=== PATIENT | female | born 1965 | race Asian ===

== ENCOUNTER 2016-10-06 12:28 | Inpatient (IN) | payer OTHER ==
[~2016-10-06] VITALS: Ht 147.3 cm; Wt 56.2 kg
[2016-10-06] MEDS ORDERED: ALPR0.5T PO (13:14)
[2016-10-06] MEDS ORDERED: IBUP200C11 PO (13:15)
[2016-10-06] MEDS ORDERED: FER325 PO (13:15)
[2016-10-06] MEDS ORDERED: AMLO5TAB4 PO (13:16)
[2016-10-06 13:29] LABS: ADD SCAN DIFF NO
[2016-10-06 13:32] LABS: ABNORMAL IP MESSAGE 1; HEMATOCRIT 16.5 % (37.0-47.0); MEAN CORPUSCULAR HEMOGLOBIN 38.3 pg (29.0-33.0); MEAN CORPUSCULAR HGB CONC 32.7 g/dl (32.0-37.0); RED BLOOD COUNT 1.41 10^6/ul (4.20-5.40); RED CELL DISTRIBUTION WIDTH 15.8 % (11.5-14.5); WHITE BLOOD COUNT 2.5 10^3/ul (4.8-10.8)
--- NOTE | 2016-10-06 13:38 | RADRPT ---
PROCEDURE: Chest x-ray CLINICAL INDICATION: Upper GI bleed TECHNIQUE: Chest single view COMPARISON: None FINDINGS: The heart is normal in size. The pulmonary vessels are normal in caliber. The lungs are clear. Th e costophrenic angles are sharp. The visualized bony thorax is unremarkable. IMPRESSION: No acute cardiopulmonary disease. RPTAT: HH .Delano Plaza MD, Date Time Electronically viewed and signed by .Delano Plaza MD, on 10/06/2016 13:38 .W/
[2016-10-06 13:39] LABS: HEMOGLOBIN 5.4 g/dl (12.0-16.0)
[2016-10-06 13:40] LABS: CHLORIDE 107 mmol/L (97-110); PLATELET COUNT 25 10^3/UL (140-415)
[2016-10-06 13:41] LABS: ALBUMIN 3.9 g/dl (3.3-4.9); POTASSIUM 3.7 mmol/L (3.5-5.1); SODIUM 144 mmol/L (135-144)
[2016-10-06 13:42] LABS: INR 0.8; PROTIME 11.1 Sec (12.2-14.2); PT RATIO 0.9
[2016-10-06 13:43] LABS: PARTIAL THROMBOPLASTIN TIME 27.2 Sec (25.0-35.0)
[2016-10-06 13:44] LABS: ALANINE AMINOTRANSFERASE 35 IU/L (13-69); ALKALINE PHOSPHATASE 141 IU/L (42-121); ANION GAP 16 (8-16); ASPARTATE AMINO TRANSFERASE 18 IU/L (15-46); BLOOD UREA NITROGEN 12 mg/dl (7-20); CALCIUM 8.8 mg/dl (8.4-10.2); CARBON DIOXIDE 25 mmol/L (21-31); CREATININE 0.41 mg/dl (0.44-1.00); GLUCOSE 85 mg/dl (70-220); TOTAL PROTEIN 7.8 g/dl (6.1-8.1)
[2016-10-06 13:57] LABS: TROPONIN-I < 0.012 ng/ml (0.00-0.12)
--- NOTE | 2016-10-06 14:15 | ERA ---
ER Documentation Chief Complaint Date/Time DATE: 10/06/16 TIME: 14:11 Chief Complaint SENT HERE BY PMD FOR BLOOD TRANSFUSION HGB 7.1, CHEST PAIN X 3 WEEKS HPI In the office. Patient states she has had anemia chronically but never had blood transfusions before. Patient states she has had 3 weeks of daily exertional angina. Never has pain at rest. Patient will get chest pain with walking or exerting herself has to rest to get relief. No shortness of breath no melena no heavy vaginal bleeding no bleeding gums no abdominal pain vomiting diarrhea. No dyspnea on exertion or orthopnea. Patient does have a history of thrombocytopenia. Patient has no idea why she has thrombocytopenia or anemia in the past ROS All systems reviewed and are negative except as per history of present illness. Medications Home Meds Reported Medications Amlodipine Besylate* (Norvasc*) 5 Mg Tablet, 5 MG PO DAILY, TAB 10/06/16 Ferrous Sulfate* (Ferrous Sulfate*) 325 Mg Tabec, 325 MG PO BID, TAB 10/06/16 Ibuprofen* (Advil*) 200 Mg Capsule, 400 MG PO DAILY Y for PRN, CAP 10/06/16 Alprazolam* (Xanax*) Unknown Strength Tab, MG PO QHS Y for ANXIETY, TAB 10/06/16 Allergies Allergies: Coded Allergies: No Known Allergy (Unverified , 10/06/16) PMhx/Soc History of Surgery: No Anesthesia Reaction: No Hx Neurological Disorder: No Hx Respiratory Disorders: No Hx Cardiac Disorders: Yes (HTN) Hx Psychiatric Problems: No Hx Miscellaneous Medical Probl: Yes (anemia, Hep B, ) Hx Alcohol Use: No Hx Substance Use: No Hx Tobacco Use: No Smoking Status: Never smoker FmHx Family History: No coronary disease Physical Exam Vitals Vital Signs Date Time Temp Pulse Resp B/P Pulse Ox O2 Delivery O2 Flow Rate FiO2 10/06/16 14:01 72 14 114/78 100 Nasal Cannula 2.0 10/06/16 12:36 92.8 78 20 124/81 100 Physical Exam Const: Well-developed, well-nourished Head: Atraumatic, normocephalic Eyes: pale Conjunctiva, PERRLA, EOMI, normal sclera, no nystagmus ENT: Normal External Ears, Nose and Mouth, moist mucus membranes. Neck: Full range of motion. No meningismus, no lymphadenopathy. Resp: Clear to auscultation bilaterally, no wheezing, rhonchi, rales Cardio: Regular rate and rhythm, no murmurs, S1 S2 present Abd: Soft, non tender x 4, non distended. Normal bowel sounds, no guarding or rebound, no pulsitile abdominal masses or bruits Skin: No petechiae or rashes, no ecchymosis , no maculopapular rash Back: No midline or flank tenderness Ext: No cyanosis, or edema, FROM x 4, normal inspection, neurovascularly intact x 4 Neur: Awake and alert, STR 5/5 x 4, sensation intact x 4, no focal findings, cerebellum intact Psych: Normal Mood and Affect Result Diagram: 10/06/16 1320 10/06/16 1320 Results 24 hrs Laboratory Tests Test 10/06/16 13:20 Activated Partial Thromboplast Time 27.2Sec Alanine Aminotransferase (ALT/SGPT) 35IU/L Albumin 3.9g/dl Albumin/Globulin Ratio 1.00 Alkaline Phosphatase 141IU/L Anion Gap 16 Aspartate Amino Transf (AST/SGOT) 18IU/L Blood Urea Nitrogen 12mg/dl Calcium Level 8.8mg/dl Carbon Dioxide Level 25mmol/L Chloride Level 107mmol/L Creatinine 0.41mg/dl Direct Bilirubin 0.00mg/dl Globulin 3.90g/dl Glucose Level 85mg/dl Hematocrit 16.5% Hemoglobin 5.4g/dl INR International Normalized Ratio 0.80 Indirect Bilirubin 0.0mg/dl Mean Corpuscular Hemoglobin 38.3pg Mean Corpuscular Hemoglobin Concent 32.7g/dl Mean Corpuscular Volume 117.0fl Mean Platelet Volume 10.0fl Platelet Count 2510^3/UL Potassium Level 3.7mmol/L Prothrombin Time 11.1Sec Prothrombin Time Ratio 0.9 Red Blood Count 1.4110^6/ul Red Cell Distribution Width 15.8% Sodium Level 144mmol/L Total Bilirubin 0.0mg/dl Total Protein 7.8g/dl Troponin I < 0.012ng/ml White Blood Count 2.510^3/ul Procedures/MDM EKG: Rate/Rhythm: Normal sinus rhythm heart rate 76 QRS, ST, QT: NORMAL OR, QRS, QT] Impression: NORMAL EKG PROCEDURE: Chest x-ray CLINICAL INDICATION: Upper GI bleed TECHNIQUE: Chest single view COMPARISON: None FINDINGS: The heart is normal in size. The pulmonary vessels are normal in caliber. The lungs are clear. The costophrenic angles are sharp. The visualized bony thorax is unremarkable. IMPRESSION: No acute cardiopulmonary disease. RPTAT: HH .Delano Plaza MD, Date Time Electronically viewed and signed by .Delano Plaza MD, on 10/06/2016 13:38 .W/ CC: ZAIDA CARPENTER DO Patient will get 2 units of packed red blood cells transfused 2 units of platelets. Patient has severe thrombocytopenia and anemia and pancytopenia She will need to get admitted to the hospital and undergo a bone marrow biopsy Her chest pain is likely due to her anemia Critical Care Time: 30 minutes Treatments/Evaluations: Close monitoring and treatment of unstable vital signs, cardiorespiratory, and neurologic status, while maintaining tight balance of fluid, respiratory, and cardiac interventions. This time includes discussing the case with the patient and the patient's family. This time does not include all procedures stated elsewhere in this record. This time also includes reviewing old records, labs and radiological studies. This time includes examining and re-examining the patient. Additionally, this time also includes arranging care with admitting and consulting physicians. Departure Diagnosis: Primary Impression: Pancytopenia Additional Impressions: Severe anemia Chest pain Qualified Code: R07.9 - Chest pain, unspecified type Condition: Stable ZAIDA CARPENTER DO Oct 06, 2016 14:15
[2016-10-06 14:25] LABS: EOSINOPHILS # 0.1 10^3/ul (0.0-0.5); LYMPHOCYTES # 1.8 10^3/ul (0.8-2.9); MONOCYTE # 0.1 10^3/ul (0.3-0.9); NEUTROPHIL # 0.6 10^3/ul (1.6-7.5)
[2016-10-06 14:31] LABS: PLATELET ESTIMATE PLT APPEAR DECREASED
[2016-10-06] MEDS ORDERED: SOD CHLORIDE 0.9% 1,000 ML IV SCH (14:47)
[2016-10-06] MEDS ORDERED: ACETAMINOPHEN 325 MG TAB PO PRN (15:00)
[2016-10-06] MEDS ORDERED: ONDANSETRON 4 MG INJ IV PRN (15:00)
[2016-10-06 15:51] VITALS: TEMP 93.5
[2016-10-06 17:13] VITALS: Ht 147.3 cm; Wt 56.2 kg
[2016-10-06 20:00] VITALS: BP 140/82; RESP 16
--- NOTE | 2016-10-06 21:11 | QN ---
Documentation Comment [id number] CINYD LYLE MD Oct 06, 2016 21:11
--- NOTE | 2016-10-06 22:15 | HP ---
DATE OF ADMISSION: 10/06/2016 HISTORY OF PRESENT ILLNESS: The patient is a 51-year-old female with history of anemia. The patient has history of pancytopenia, has been seeing a shape carver as an outpatient _. The patient now was seen by her primary doctor , noted to have symptomatic anemia, was transferred here for further management. Blood pressure 140/82. WBCs 2.5, hemoglobin 5.4, platelet count of 25. The patient has a BMP within normal limits. Chest x-ray was unremarkable. The patient denies any hematemesis, melena at this point. No history of vaginal bleed or GI bleed. PAST MEDICAL HISTORY: Has history of pancytopenia. The patient has history of hypertension, anxiety. ALLERGY HISTORY: NEGATIVE. FAMILY HISTORY: Positive for anemia, thrombocytopenia. SOCIAL HISTORY: Negative. MEDICATIONS: 1. Xanax. 2. Amlodipine. 3. Iron sulfate. 4. Ibuprofen. REVIEW OF SYSTEMS HEENT: Unremarkable. RESPIRATORY: Unremarkable. CARDIOVASCULAR: Unremarkable. ABDOMEN: Unremarkable. EXTREMITIES: As mentioned above, unremarkable. CENTRAL NERVOUS SYSTEM: Unremarkable. PHYSICAL EXAMINATION: GENERAL: The patient is awake, alert. VITAL SIGNS: Stable. HEAD: Atraumatic, normocephalic. EYES: Pupils equal, reactive. Pale conjunctivae. No icterus. NECK: Supple. No JVD. LUNGS: Clear. CARDIOVASCULAR: S1, S2 are normal. ABDOMEN: Soft, nontender. Bowel sounds present. No palpable mass or hepatosplenomegaly. No guarding, rebound tenderness. EXTREMITIES: No cyanosis, clubbing, edema. CENTRAL NERVOUS SYSTEM: The patient is awake, alert. No focal deficit. LABORATORY DATA: As mentioned above. IMPRESSION: 1. The patient has pancytopenia. 2. Symptomatic anemia. 3. History of chronic hyponatremia per patient. PLAN: At this point is to continue blood transfusion, obtain hematology consultation. Orders were done. Dr. Liu has been notified to see this patient in consultation. Dictated By: CINDY LYLE MD BS/NTS Conf#: [id number] DID#: [id number] MTDD
[2016-10-06] MEDS: ZOLPIDEM 5 MG TAB PO PRN (23:03)
[2016-10-07] MEDS ORDERED: ZOLPIDEM 5 MG TAB PO ONE ×2 (01:16→22:30)
[2016-10-07] MEDS: ACETAMINOPHEN/CODEINE #3 TAB PO PRN ×2 (01:29→15:42)
[2016-10-07] MEDS: SOD CHLORIDE 0.9% 1,000 ML IV SCH ×2 (01:33→19:00)
[2016-10-07 02:44] LABS: ADD SCAN DIFF NO
[2016-10-07 02:53] LABS: ABNORMAL IP MESSAGE 1; BASOPHILS % 0.2 % (0.0-2.0); EOSINOPHILS % 0.2 % (0.0-7.0); HEMATOCRIT 25.9 % (37.0-47.0); HEMOGLOBIN 8.5 g/dl (12.0-16.0); LYMPHOCYTES # 1.4 10^3/ul (0.8-2.9); LYMPHOCYTES % 25.9 % (15.0-51.0); MEAN CORPUSCULAR HEMOGLOBIN 33.2 pg (29.0-33.0); MEAN CORPUSCULAR HGB CONC 32.8 g/dl (32.0-37.0); MEAN CORPUSCULAR VOLUME 101.2 fl (82.0-101.0); MEAN PLATELET VOLUME 9.5 fl (7.4-10.4); MONOCYTE # 0.4 10^3/ul (0.3-0.9); MONOCYTES % 7.8 % (0.0-11.0); NEUTROPHIL # 3.5 10^3/ul (1.6-7.5); NEUTROPHILS % 65.5 % (39.0-77.0); RED BLOOD COUNT 2.56 10^6/ul (4.20-5.40); RED CELL DISTRIBUTION WIDTH 20.7 % (11.5-14.5); WHITE BLOOD COUNT 5.3 10^3/ul (4.8-10.8)
[2016-10-07 02:59] LABS: PLATELET COUNT 87 10^3/UL (140-415)
[2016-10-07 03:05] LABS: ALBUMIN 4.1 g/dl (3.3-4.9); POTASSIUM 3.8 mmol/L (3.5-5.1)
[2016-10-07 03:07] LABS: CREATININE 0.56 mg/dl (0.44-1.00)
[2016-10-07 03:08] LABS: ALBUMIN/GLOBULIN RATIO 1.17; BILIRUBIN,INDIRECT 0.2 mg/dl (0-1.1); BILIRUBIN,TOTAL 0.2 mg/dl (0.2-1.3); CALCIUM 9.9 mg/dl (8.4-10.2); TOTAL PROTEIN 7.6 g/dl (6.1-8.1)
[2016-10-07 05:01] LABS: ADD SCAN DIFF NO
[2016-10-07 05:20] LABS: ABNORMAL IP MESSAGE 1; BASOPHILS % 0.2 % (0.0-2.0); EOSINOPHILS % 0.2 % (0.0-7.0); HEMATOCRIT 25.7 % (37.0-47.0); HEMOGLOBIN 8.6 g/dl (12.0-16.0); LYMPHOCYTES # 1.5 10^3/ul (0.8-2.9); LYMPHOCYTES % 27.3 % (15.0-51.0); MEAN CORPUSCULAR HGB CONC 33.5 g/dl (32.0-37.0); MEAN CORPUSCULAR VOLUME 101.6 fl (82.0-101.0); MONOCYTE # 0.4 10^3/ul (0.3-0.9); MONOCYTES % 7.4 % (0.0-11.0); NEUTROPHIL # 3.5 10^3/ul (1.6-7.5); NEUTROPHILS % 64.2 % (39.0-77.0); NUCLEATED RED BLOOD CELLS% 0.4 /100WBC (0.0-0.0); RED BLOOD COUNT 2.53 10^6/ul (4.20-5.40); RED CELL DISTRIBUTION WIDTH 20.5 % (11.5-14.5); WHITE BLOOD COUNT 5.4 10^3/ul (4.8-10.8)
[2016-10-07] MEDS: PANTOPRAZOLE 40 MG INJ IV SCH (05:21)
[2016-10-07 05:32] LABS: ALBUMIN 4.3 g/dl (3.3-4.9); POTASSIUM 3.9 mmol/L (3.5-5.1)
[2016-10-07 05:34] LABS: CREATININE 0.56 mg/dl (0.44-1.00)
[2016-10-07 05:35] LABS: ALBUMIN/GLOBULIN RATIO 1.1; BILIRUBIN,INDIRECT 0.1 mg/dl (0-1.1); BILIRUBIN,TOTAL 0.1 mg/dl (0.2-1.3); TOTAL PROTEIN 8.2 g/dl (6.1-8.1)
[2016-10-07 05:36] LABS: CALCIUM 9.8 mg/dl (8.4-10.2)
[2016-10-07 07:43] VITALS: BP 128/82; RESP 20
[2016-10-07 13:52] LABS: HAAIG REFLEX REFLEX FILED
[2016-10-07 13:58] LABS: RETICULOCYTE COUNT % 3.1 % (0.5-1.5)
[2016-10-07 14:13] LABS: PLATELET COUNT 94 10^3/UL (140-415)
[2016-10-07 14:19] LABS: INR 0.93; PROTIME 12.5 Sec (12.2-14.2)
[2016-10-07 14:20] LABS: PARTIAL THROMBOPLASTIN TIME 26.9 Sec (25.0-35.0); THROMBIN TIME 15.5 SEC (13.8-19.1)
[2016-10-07 14:21] LABS: LACTATE DEHYDROGENASE 554 IU/L (313-618)
[2016-10-07 14:23] LABS: D-DIMER 901.34 ng/ml (<460)
[2016-10-07 14:26] LABS: IRON 176 ug/dl (35-150)
[2016-10-07 14:35] LABS: TOTAL IRON BINDING CAPACITY 469 ug/dl (241-421)
[2016-10-07 14:48] LABS: FIBRIN SPLIT PRODUCT <10 ug/ml (<10)
[2016-10-07 15:08] LABS: HEPATITIS B CORE ANTIBODY REACTIVE (NEGATIVE)
--- NOTE | 2016-10-07 15:14 | CONS ---
Date/Time of Note Date/Time of Note DATE: 10/07/16 TIME: 15:11 Assessment/Plan Assessment/Plan Chief Complaint/Hosp Course The patient is a 51-year-old female with history of anemia and pancytopenia - Will obtain work-up with retic count, iron panel, ferritin, B12/folate, LDH, haptoglobin, HIV, Hep panel, DIC panel. - Will obtain abdominal US to eval for cirrhosis or splenomegaly - Peripheral smear review by path requested - Will pursue bone marrow biopsy tomorrow by IR. DUMONT after MN - If blood counts stable tomorrow and after US and BMBx, patient may be discharged home with outpatient follow-up. She requests to follow up with me after discharge and has been given my card to call to make an appointment. Problems: Consultation Date/Type/Reason Admit Date/Time Oct 06, 2016 at 14:48 Date of Consultation: Oct 07, 2016 Type of Consultation: Hematology/Oncology Hx of Present Illness The patient is a 51-year-old female with history of anemia. The patient has history of pancytopenia, and saw pretzel cooker Dr. Bishop last year for low blood counts but states that she did not have a diagnosis. The patient now was seen by her primary doctor, noted to have symptomatic anemia, was transferred here for further management. WBCs 2.5, hemoglobin 5.4, platelet count of 25, s/p platelet and blood transfusions, now WBC 5.2, Hgb 8.5, Plt 87. The patient denies any hematemesis, melena at this point. No history of vaginal bleed or GI bleed. She has been feeling quite fatigued. Past Medical History Hypertension, anxiety Family History Significant Family History: no pertinent family hx Social History Alcohol Use: none Smoking Status: Never smoker Drug Use: none Exam/Review of Systems Vital Signs Vitals Vital Signs Date Time Temp Pulse Resp B/P Pulse Ox O2 Delivery O2 Flow Rate FiO2 10/07/16 07:43 97.3 62 20 128/82 97 10/06/16 15:51 Nasal Cannula 2.0 Intake and Output 10/06/16 10/06/16 10/07/16 15:00 23:00 07:00 Intake Total 600 ml 505 ml Balance 600 ml 505 ml Exam Constitutional: alert, oriented Psych: no complaints Neck: supple Respiratory: clear to auscultation Cardiovascular: regular rate and rhythm Gastrointestinal: non-tender, soft Musculoskeletal: nl extremities to inspection Neurological: [employer]ING [employer]INATOR II-XII intact Results Result Diagram: 10/07/16 1316 10/07/16 0415 Results 24 hrs Laboratory Tests Test 10/07/16 02:30 10/07/16 04:15 10/07/16 10:30 10/07/16 13:16 Alanine Aminotransferase (ALT/SGPT) 28 31 Albumin 4.1 4.3 Albumin/Globulin Ratio 1.17 1.10 Alkaline Phosphatase 114 123 H Anion Gap 19 H 18 H Aspartate Amino Transf (AST/SGOT) 22 23 Basophils # 0.0 0.0 Basophils % 0.2 0.2 Blood Urea Nitrogen 13 14 Calcium Level 9.9 9.8 Carbon Dioxide Level 25 27 Chloride Level 105 104 Creatinine 0.56 0.56 Direct Bilirubin 0.00 0.00 Eosinophils # 0.0 0.0 Eosinophils % 0.2 0.2 Globulin 3.50 H 3.90 H Glucose Level 109 87 Hematocrit 25.9 #L 25.7 L Hemoglobin 8.5 #L 8.6 L Indirect Bilirubin 0.2 0.1 Lymphocytes # 1.4 1.5 Lymphocytes % 25.9 27.3 Mean Corpuscular Hemoglobin 33.2 H 34.0 H Mean Corpuscular Hemoglobin Concent 32.8 33.5 Mean Corpuscular Volume 101.2 H 101.6 H Mean Platelet Volume 9.5 10.0 Monocytes # 0.4 0.4 Monocytes % 7.8 7.4 Neutrophils # 3.5 3.5 Neutrophils % 65.5 64.2 Nucleated Red Blood Cells # 0.0 0.0 Nucleated Red Blood Cells % 0.0 0.4 H Platelet Count 87 #L 90 L 94 L Potassium Level 3.8 3.9 Red Blood Count 2.56 #L 2.53 L Red Cell Distribution Width 20.7 #H 20.5 H Sodium Level 145 H 145 H Total Bilirubin 0.2 0.1 L Total Protein 7.6 8.2 H White Blood Count 5.3 # 5.4 Stool Occult Blood NEGATIVE Absolute Reticulocyte Count 0.081 Activated Partial Thromboplast Time 26.9 D-Dimer 901.34 H D-Dimer Comment Ferritin Pending Fibrinogen 449.0 Folate Pending HIV (1&2) Antibody Pending Hepatitis B Core Total Antibody Pending Hepatitis B Surface Antigen Pending Hepatitis C Antibody Pending INR International Normalized Ratio 0.93 Iron Level 176 H Lactate Dehydrogenase 554 Percent Iron Saturation 38 Percent Reticulocyte Count 3.1 H Plasma Fibrin Degradation Products <10 Prothrombin Time 12.5 Prothrombin Time Ratio 1.0 Thrombin Time 15.5 Total Iron Binding Capacity 469 H Vitamin B12 Level Pending Medications Medications Current Medications Pantoprazole 40 mg 40 mg DAILY@06 IV Last administered on 10/07/16 05:21; Admin Dose 40 MG; Start 10/07/16 at 06:00 Sodium Chloride (NS) 1,000 ml @ 30 mls/hr Q24H IV Last administered on 01:33; Admin Dose 30 MLS/HR; Start 10/06/16 at 19:00 Zolpidem Tartrate (Ambien) 5 mg HS PRN PO INSOMNIA Last administered on 23:03; Admin Dose 5 MG; Start 10/06/16 at 22:30 Acetaminophen/ Codeine Phosphate (Tylenol No.3) 1 tab Q6H PRN PO PAIN Last administered on 10/07/16 01:29; Admin Dose 1 TAB; Start 10/07/16 at 01:30 MARINA CARRASCO MD Oct 07, 2016 15:14
[2016-10-07 15:31] LABS: FOLATE 8.7 ng/ml (2.8-20.0)
--- NOTE | 2016-10-07 19:33 | RADRPT ---
PROCEDURE: Complete abdominal and retroperitoneum ultrasound. CLINICAL INDICATION: Abdominal pain, splenomegaly, cirrhosis TECHNIQUE: [place] scale and color doppler ultrasound images of the abdomen and retroperitoneum and u rinary bladder. COMPARISON: None FINDINGS: Pancreas: Visualized portions appear of normal echogenicity, no focal lesions. Liver: Morphology: Normal in size and contour. Measures 15.3 cm Echogenicity: Minimal questionable coarsening of the hepatic echotexture. Focal lesions: None. Main portal vein: Patent with hepatopetal flow. Biliary System: Gallbladder appears contracted. No gallstones seen. No intrahepatic biliary dilatation. Common bile duct diameter: 3.3 mm Kidneys: Right length: 11.8 cm. Right renal cortical thickness is preserved. Left length: 12.1 cm. Left renal cortical thickness is preserved. Normal echogenicity. Minimal bilateral hydronephrosis. A few nonshadowing echogenic foci are present within each kidney measuring up to 5 mm. No focal renal lesions. Spleen: Normal in size, no focal lesions. Measures 9.3 cm No free fluid identified. Normal caliber of the partially visualized aorta. Urinary bladder: No focal lesions. Bilateral ureteral jets are observed. IMPRESSION: Minimal questionable coarsening of the hepatic echotexture without contour nodularity. Appearance i s not definitely suggestive of cirrhosis. No focal hepatic lesions. Gallbladder appears contracted without gallstones. Normal size spleen. Small echogenic foci seen within both kidneys without definite shadowing; these may represent small nonshadowing calculi. Minimal bilateral hydronephrosis is observed although both ureteral jets are p resent. CT scan of the abdomen and pelvis can be obtained for further evaluation. RPTAT: AADD .Abdulaziz Kellogg MD, Date Time Electronically viewed and signed by .Abdulaziz Kellogg MD, on 10/07/2016 19:32 .B/
--- NOTE | 2016-10-07 19:48 | PN ---
Date/Time of Note Date/Time of Note DATE: 10/07/16 TIME: 19:47 Assessment/Plan VTE Prophylaxis VTE Prophylaxis Intervention: other Lines/Catheters IV [facility] Peripheral IV Assessment/Plan Chief Complaint/Hosp Course IMPRESSION: 1. The patient has pancytopenia. 2. Symptomatic anemia. 3. History of chronic hyponatremia per patient. plan per hematology Problems: Subjective 24 Hr Interval Summary Cardiovascular: no complaints Gastrointestinal: no complaints Exam/Review of Systems Vital Signs Vitals Vital Signs Date Time Temp Pulse Resp B/P Pulse Ox O2 Delivery O2 Flow Rate FiO2 10/07/16 07:43 97.3 62 20 128/82 97 10/06/16 15:51 Nasal Cannula 2.0 Intake and Output 10/06/16 10/06/16 10/07/16 15:00 23:00 07:00 Intake Total 600 ml 505 ml Balance 600 ml 505 ml Exam Respiratory: clear to auscultation Cardiovascular: regular rate and rhythm Gastrointestinal: soft Musculoskeletal: nl extremities to inspection Results Result Diagram: 10/07/16 1316 10/07/16 0415 Results 24 hrs Laboratory Tests Test 10/07/16 02:30 10/07/16 04:15 10/07/16 10:30 10/07/16 13:16 Alanine Aminotransferase (ALT/SGPT) 28 31 Albumin 4.1 4.3 Albumin/Globulin Ratio 1.17 1.10 Alkaline Phosphatase 114 123 H Anion Gap 19 H 18 H Aspartate Amino Transf (AST/SGOT) 22 23 Basophils # 0.0 0.0 Basophils % 0.2 0.2 Blood Urea Nitrogen 13 14 Calcium Level 9.9 9.8 Carbon Dioxide Level 25 27 Chloride Level 105 104 Creatinine 0.56 0.56 Direct Bilirubin 0.00 0.00 Eosinophils # 0.0 0.0 Eosinophils % 0.2 0.2 Globulin 3.50 H 3.90 H Glucose Level 109 87 Hematocrit 25.9 #L 25.7 L Hemoglobin 8.5 #L 8.6 L Indirect Bilirubin 0.2 0.1 Lymphocytes # 1.4 1.5 Lymphocytes % 25.9 27.3 Mean Corpuscular Hemoglobin 33.2 H 34.0 H Mean Corpuscular Hemoglobin Concent 32.8 33.5 Mean Corpuscular Volume 101.2 H 101.6 H Mean Platelet Volume 9.5 10.0 Monocytes # 0.4 0.4 Monocytes % 7.8 7.4 Neutrophils # 3.5 3.5 Neutrophils % 65.5 64.2 Nucleated Red Blood Cells # 0.0 0.0 Nucleated Red Blood Cells % 0.0 0.4 H Platelet Count 87 #L 90 L 94 L Potassium Level 3.8 3.9 Red Blood Count 2.56 #L 2.53 L Red Cell Distribution Width 20.7 #H 20.5 H Sodium Level 145 H 145 H Total Bilirubin 0.2 0.1 L Total Protein 7.6 8.2 H White Blood Count 5.3 # 5.4 Stool Occult Blood NEGATIVE Absolute Reticulocyte Count 0.081 Activated Partial Thromboplast Time 26.9 D-Dimer 901.34 H D-Dimer Comment Ferritin 108.0 Fibrinogen 449.0 Folate 8.7 HIV (1&2) Antibody NEGATIVE Hepatitis B Core Total Antibody REACTIVE H Hepatitis B Surface Antigen NEGATIVE Hepatitis C Antibody NEGATIVE INR International Normalized Ratio 0.93 Iron Level 176 H Lactate Dehydrogenase 554 Percent Iron Saturation 38 Percent Reticulocyte Count 3.1 H Plasma Fibrin Degradation Products <10 Prothrombin Time 12.5 Prothrombin Time Ratio 1.0 Thrombin Time 15.5 Total Iron Binding Capacity 469 H Vitamin B12 Level 902 Medications Medications Current Medications Pantoprazole 40 mg 40 mg DAILY@06 IV Last administered on 10/07/16 05:21; Admin Dose 40 MG; Start 10/07/16 at 06:00 Sodium Chloride (NS) 1,000 ml @ 30 mls/hr Q24H IV Last administered on 01:33; Admin Dose 30 MLS/HR; Start 10/06/16 at 19:00 Zolpidem Tartrate (Ambien) 5 mg HS PRN PO INSOMNIA Last administered on 23:03; Admin Dose 5 MG; Start 10/06/16 at 22:30 Acetaminophen/ Codeine Phosphate (Tylenol No.3) 1 tab Q6H PRN PO PAIN Last administered on 10/07/16 15:42; Admin Dose 1 TAB; Start 10/07/16 at 01:30 CINDY LYLE MD Oct 07, 2016 19:48
[2016-10-07 20:01] VITALS: BP 139/97; RESP 19
[2016-10-07] MEDS: ZOLPIDEM 5 MG TAB PO PRN (20:56)
[2016-10-08] MEDS: ACETAMINOPHEN/CODEINE #3 TAB PO PRN ×2 (01:10→12:11)
[2016-10-08] MEDS: PANTOPRAZOLE 40 MG INJ IV SCH (05:42)
[2016-10-08 05:48] LABS: ADD SCAN DIFF NO
[2016-10-08 05:53] LABS: ABNORMAL IP MESSAGE 1; BASOPHILS % 0.3 % (0.0-2.0); EOSINOPHILS % 0.6 % (0.0-7.0); HEMOGLOBIN 8.3 g/dl (12.0-16.0); LYMPHOCYTES # 1.7 10^3/ul (0.8-2.9); LYMPHOCYTES % 47.5 % (15.0-51.0); MEAN CORPUSCULAR HEMOGLOBIN 34.2 pg (29.0-33.0); MEAN CORPUSCULAR HGB CONC 33.2 g/dl (32.0-37.0); MEAN CORPUSCULAR VOLUME 102.9 fl (82.0-101.0); MEAN PLATELET VOLUME 9.8 fl (7.4-10.4); MONOCYTE # 0.3 10^3/ul (0.3-0.9); MONOCYTES % 9.6 % (0.0-11.0); NEUTROPHIL # 1.5 10^3/ul (1.6-7.5); NEUTROPHILS % 40.9 % (39.0-77.0); NUCLEATED RED BLOOD CELLS% 0.6 /100WBC (0.0-0.0); PLATELET COUNT 74 10^3/UL (140-415); POTASSIUM 3.9 mmol/L (3.5-5.1); RED BLOOD COUNT 2.43 10^6/ul (4.20-5.40); WHITE BLOOD COUNT 3.5 10^3/ul (4.8-10.8)
[2016-10-08 05:55] LABS: CREATININE 0.53 mg/dl (0.44-1.00)
[2016-10-08 05:56] LABS: CALCIUM 9.6 mg/dl (8.4-10.2)
[2016-10-08 08:07] VITALS: BP 140/86; RESP 20
[2016-10-08] MEDS ORDERED: MIDAZOLAM 1 MG/ML 2 ML INJ ONE (08:35)
[2016-10-08] MEDS ORDERED: FENTAnyl 50 MCG/ML VIAL ONE (08:35)
[2016-10-08] MEDS ORDERED: LIDOCAINE 1% (MDV) 20 ML INJ ONE (08:35)
[2016-10-08] MEDS ORDERED: DIPHENHYDRAMINE 50 MG INJ ONE (08:36)
[2016-10-08 09:25] VITALS: BP 153/93; PULSE 77; RESP 20
[2016-10-08 10:05] VITALS: BP 137/84; PULSE 74; RESP 21
[2016-10-08 10:10] VITALS: BP 143/96; PULSE 72; RESP 20
--- NOTE | 2016-10-08 10:28 | RADRPT ---
PROCEDURE: CT guided bone marrow aspiration and left iliac bone biopsy. CLINICAL INDICATION: History of pancytopenia. TECHNIQUE: Informed consent was obtained. The procedure, risks, benefits, complications and alternatives were e xplained to the patient. Risks including bleeding and infection were explained. The patient understo od and was willing to proceed. A procedural pause was performed. The patient's name, date of , and procedure to be performed were verified. One or more of the following dose reduction techni ques were used: Automated exposure control, adjustment of the mA and/or kV according to patient size , use of iterative reconstruction technique. Using local anesthetic, sterile technique and CT guidance, an 11-gauge On Control bone biopsy needle was advanced into the left iliac bone via a posterior approach. Bone marrow aspiration was perform ed yielding approximately 10 ml. The bone biopsy needle was then advanced an additional 4 cm using the power drill device and tissue was obtained. Adequate tissue was obtained according to the patho logist present during the procedure. The needle was removed. A postprocedural scan was performed. A dressing was applied. The patient tolerated procedure well. COMPARISON: None. FINDINGS: Initial images demonstrate the tip of the needle at the posterior margin of the left iliac bone. Quintero bsequent images demonstrate the needle within the bone. Post biopsy images demonstrate no immediate complication. IMPRESSION: 1. Successful CT guided bone marrow aspiration and biopsy. RPTAT: QQ .Tom Jimenez MD, Date Time Electronically viewed and signed by .Tom Jimenez MD, on 10/08/2016 10:28 .R/
--- NOTE | 2016-10-08 12:38 | PDOCDIS ---
Discharge Instructions CONDITION Patient Condition: Good HOME CARE INSTRUCTIONS: Special Diet: NPO ACTIVITY: Activity Restrictions: Slowly Increase Activity FOLLOW UP/APPOINTMENTS Appointments f/u own pcp 1 wk f/u dr agarwal 1 wk CINDY LYLE MD Oct 08, 2016 12:38
[2016-10-08] MEDS ORDERED: TRAM50TA2 PO (12:39)
[2016-10-08] MEDS ORDERED: ZOLPIDEM 5 MG TAB PO PRN (21:00)
[2016-10-10 08:39] LABS: PLATELET COUNT 90 10^3/UL (140-415)
== END 2016-10-08 15:37 | disposition home or self-care (01) | DRG 810 ==
LOC: E/R 12:28 → PP2 14:48
PROVIDERS: ADMIT Internal Medicine Nephrology; ATTEND Internal Medicine Nephrology
PROC: 30233R1 Transfusion of Nonautologous Platelets into Peripheral Vein, Percutaneous Approach (ICD-10-PCS; principal; 2016-10-06)
PROC: 30233N1 Transfusion of Nonautologous Red Blood Cells into Peripheral Vein, Percutaneous Approach (ICD-10-PCS; 2016-10-06)
DX: D61.818 Other pancytopenia (principal); I10 Essential (primary) hypertension; D64.9 Anemia, unspecified
CPT/HCPCS: 36415; 36430; 71010; 76700; 77012; 80048; 80053; 82270; 82607; 82728; 82746; 83010; 83540; 83615; 84484; 85025; 85045; 85049; 85362; 85378; 85384; 85610; 85670; 85730; 86644; 86703; 86704; 86709; 86803; 86850; 86900; 86901; 86920; 87340; 88305; 88313; 93005; C9113; J1200; J2250; J3010; J7030; P9016; P9035

== ENCOUNTER 2018-01-15 08:30 | Emergency (ER) | END 2018-01-15 16:44 | disposition home or self-care (01) ==

== ENCOUNTER 2018-01-26 09:02 | Emergency (ER) | END 2018-01-26 20:30 | disposition left against medical advice (07) ==

== ENCOUNTER 2018-02-04 09:57 | Emergency (ER) | END 2018-02-04 19:09 | disposition home or self-care (01) ==

== ENCOUNTER 2018-02-11 12:33 | Emergency (ER) | END 2018-02-12 05:40 | disposition home or self-care (01) ==

== ENCOUNTER 2018-02-25 17:27 | Emergency (ER) | END 2018-02-26 02:14 | disposition home or self-care (01) ==

== ENCOUNTER 2018-03-03 16:05 | Emergency (ER) | END 2018-03-04 02:00 | disposition home or self-care (01) ==

== ENCOUNTER 2018-03-04 11:56 | Emergency (ER) | END 2018-03-04 14:44 | disposition home or self-care (01) ==

== ENCOUNTER 2018-03-11 18:50 | Emergency (ER) | END 2018-03-11 20:25 | disposition left against medical advice (07) ==

== ENCOUNTER 2018-05-10 16:50 | Observation (INO) | END 2018-05-12 14:00 | disposition home or self-care (01) ==

== ENCOUNTER 2018-05-25 03:42 | Inpatient (IN) | END 2018-05-25 16:45 | disposition home or self-care (01) | DRG 813 ==

== ENCOUNTER 2018-07-01 17:05 | Inpatient (IN) | END 2018-07-02 17:50 | disposition home or self-care (01) | DRG 812 ==

== ENCOUNTER 2018-09-11 10:25 | Inpatient (IN) | payer OTHER ==
[~2018-09-11] VITALS: Ht 147.3 cm; Wt 54.1 kg
[~2018-09-11 10:25] MED LIST: AMLO-147 PO; DOCU-144 PO; FER325 PO; HYDR-4011 PO; LORA0.5T PO; ZOLP5TAB PO
[2018-09-11] MEDS ORDERED: OLANZAPINE (ODT) 5 MG TAB ODT ONE (11:00)
[2018-09-11] MEDS ORDERED: LORA1TAB PO (11:55)
--- NOTE | 2018-09-11 12:29 | ERD ---
ER Documentation Chief Complaint Chief Complaint hearing voices x few days HPI Patient is a 53 yo female with pancytopenia who presents with auditory and visual hallucinations. Here with her son. No bleeding. History of pancytopen ia with admits in the past for transfusions. No tx yet. ROS All systems reviewed and are negative except as per history of present illness. Medications Home Meds Reported Medications Lorazepam* (Lorazepam*) 1 Mg Tablet, 1 MG PO HS PRN for SLEEP, #30 TAB 09/11/18 Zolpidem Tartrate* (Ambien*) 5 Mg Tablet, 5 MG PO QHS PRN for INSOMNIA, #30 TAB 01/15/18 Discontinued Reported Medications Hydrocodone/Acetaminophen ([place] 5-325 Tablet) 1 Each Tablet, 1 EACH PO NEEDED, TAB 01/15/18 Ferrous Sulfate* (Ferrous Sulfate*) 325 Mg Tabec, 325 MG PO DAILY, TAB 01/15/18 Amlodipine Besylate* (Amlodipine Besylate*) 10 Mg Tablet, 10 MG PO DAILY, #30 TAB 01/15/18 Discontinued Scripts Docusate Sodium* (Colace*) 100 Mg Capsule, 100 MG PO BID for constipation, #60 CAP Prov:INGRID OZUNA MD 05/12/18 Lorazepam* (Lorazepam*) 0.5 Mg Tablet, 0.5 MG PO Q8H PRN for ANXIETY for 2 Days, TAB Prov:INGRID OZUNA MD 05/12/18 Allergies Allergies: Coded Allergies: No Known Allergy (Unverified , 09/11/18) PMhx/Soc Medical and Surgical Hx: pt denies Surgical Hx History of Surgery: No Anesthesia Reaction: No Hx Neurological Disorder: No Hx Respiratory Disorders: No Hx Cardiac Disorders: No Hx Psychiatric Problems: Yes (Anxiety) Hx Miscellaneous Medical Probl: Yes (Anemia, HEP B) Hx Alcohol Use: No Hx Substance Use: No Hx Tobacco Use: No Smoking Status: Former smoker FmHx Family History: No diabetes Physical Exam Vitals Vital Signs Date Temp Pulse Resp B/P (MAP) Pulse Ox O2 O2 Flow FiO2 Time Delivery Rate 09/11/18 98.0 65 18 130/62 99 10:28 (84) Physical Exam Const: No acute distress Head: Atraumatic Eyes: Normal Conjunctiva ENT: Normal External Ears, Nose and Mouth. Neck: Full range of motion. No meningismus. Resp: Clear to auscultation bilaterally Cardio: Regular rate and rhythm, no murmurs Abd: Soft, non tender, non distended. Normal bowel sounds Skin: No petechiae or rashes Back: No midline or flank tenderness Ext: No cyanosis, or edema Neur: Awake and alert Psych: Normal Mood and Affect, no SI/HI Result Diagram: 09/11/18 1110 09/11/18 1110 Results 24 hrs Laboratory Tests Test 09/11/18 11:10 09/11/18 11:26 09/11/18 11:28 White Blood Count 3.3 10^3/ul Red Blood Count 2.42 10^6/ul Hemoglobin 7.4 g/dl Hematocrit 23.1 % Mean Corpuscular Volume 95.5 fl Mean Corpuscular Hemoglobin 30.6 pg Mean Corpuscular 32.0 g/dl Hemoglobin Concent Red Cell Distribution Width 16.1 % Platelet Count 9 10^3/UL Mean Platelet Volume 9.4 fl Immature Granulocytes % 0.300 % Neutrophils % % Segmented Neutrophils % (Manual) 24 % Band Neutrophils % (Manual) 2 % Lymphocytes % % Lymphocytes % (Manual) 62 % Reactive Lymphocytes % (Manual) 2 % Monocytes % % Monocytes % (Manual) 10 % Eosinophils % % Basophils % % Nucleated Red Blood Cells % 1 % Immature Granulocytes # 0.010 10^3/ul Neutrophils # 10^3/ul Neutrophils # (Manual) 0.8 10^3/ul Band Neutrophils # 0.0 10^3/ul Lymphocytes (Manual) 2.0 10^3/ul Lymphocytes # 10^3/ul Reactive Lymphocytes # 0.0 10^3/ul Monocytes # 10^3/ul Monocytes # (Manual) 0.3 10^3/ul Eosinophils # 10^3/ul Basophils # 10^3/ul Nucleated Red Blood Cells # 10^3/ul White Cell Morphology Comment @See below Platelet Estimate SIG DECREASED Polychromasia 3+ Anisocytosis 2+ Microcytosis 2+ Red Cell Morphology Comment @See below Sodium Level 144 mmol/L Potassium Level 3.0 mmol/L Chloride Level 104 mmol/L Carbon Dioxide Level 30 mmol/L Anion Gap 10 Blood Urea Nitrogen 17 mg/dl Creatinine 0.63 mg/dl Est Glomerular Filtrat > 60 mL/min Rate mL/min Glucose Level 97 mg/dl Calcium Level 10.0 mg/dl Total Bilirubin 0.9 mg/dl Direct Bilirubin 0.00 mg/dl Indirect Bilirubin 0.9 mg/dl Aspartate Amino 68 IU/L Transf (AST/SGOT) Alanine 98 IU/L Aminotransferase (ALT/SGPT) Alkaline Phosphatase 155 IU/L Total Protein 8.3 g/dl Albumin 4.4 g/dl Globulin 3.90 g/dl Albumin/Globulin Ratio 1.12 Salicylates Level < 1.0 mg/dl Acetaminophen Level < 10.0 ug/ml Ethyl Alcohol Level < 10.0 mg/dl Urine Color YELLOW Urine Clarity SLIGHTLY CLOUDY Urine pH 5.0 Urine Specific [place] 1.024 Urine Ketones 1+ mg/dL Urine Nitrite NEGATIVE mg/dL Urine Bilirubin NEGATIVE mg/dL Urine Urobilinogen 1+ mg/dL Urine Leukocyte Esterase NEGATIVE Nan/ul Urine Microscopic RBC 5 /HPF Urine Microscopic WBC 4 /HPF Urine Squamous Epithelial Cells FEW /HPF Urine Calcium Oxalate Crystals FEW /HPF Urine Bacteria FEW /HPF Urine Mucus MANY /HPF Urine Hemoglobin 2+ mg/dL Urine Glucose 1+ mg/dL Urine Total Protein NEGATIVE mg/dl Urine Opiates Screen Negative Urine Barbiturates Negative Urine Amphetamines Screen Negative Urine Benzodiazepines Screen Negative Urine Cocaine Screen Negative Urine Cannabinoids Negative POC Beta HCG, Qualitative NEGATIVE Current Medications Medications Dose Sig/Kathrin Start Time Status Last (Trade) Ordered Route PRN Stop Time Admin Dose Reason Admin Olanzapine 5 mg ONCE ONCE 09/11/18 DC 09/11/18 (Zyprexa ODT 11:00 11:15 Zydis) 09/11/18 11:01 Ondansetron 4 mg BRIDGE ORDER 09/11/18 HCl (Zofran PRN IV 12:30 Inj) NAUSEA/VOMITI 09/12/18 12:29 NG 650 mg ER BRIDGE 09/11/18 Acetaminophen PRN PO 12:30 (Tylenol .MILD PAIN 09/12/18 12:29 Tab) 1-3 OR TEMP Procedures/MDM Labs show pancytopenia. Patient will receive transfusion of platelets. Telepsych pending but patient does not appear to be danger to herself or others. Admitted to Dr. Harrison for CFC. Dr. Liu her performance makeup artist consulted. Critical care time 35 minutes excluding all billable procedures. Departure Diagnosis: Primary Impression: Pancytopenia Condition: JOSH Pisano MD Sep 11, 2018 12:29
[2018-09-11] MEDS ORDERED: ONDANSETRON 4 MG INJ IV PRN ×2 (12:30→17:30)
[2018-09-11] MEDS ORDERED: ACETAMINOPHEN 325 MG TAB PO PRN ×2 (12:30→17:30)
--- NOTE | 2018-09-11 12:46 | PSY ---
Date/Time of Note Date/Time of Note DATE: 09/11/18 TIME: 15:40 Psychiatric Subjective Eval Consent Pt consented to telemedicine: Yes Subjective Evaluation Patient location: emergency Chief Complaint: hearing voices x few days History of present illness HPI: 53 yo female with ho hepatitis B, says she has been hearing sounds, voices that are "looking at me." Has been having delusions of reference, thinks tv is referring to her. Has been going on for a week. denies si. Son provided parallel hx. He confirms psychosis that is new onse.t Past Psych Hx: denies psych hx PMhx: hepatitis B Meds: lorazepam, zolpidem nkda MSE: casually groomed, cooperative, mumbles incoherent at times, dysthymic, restricted affect, mildly disorganized, + delusions and AH, denies si IMP; 53 yo female with new onset psychosis pt will be admitted to medicine recommend waiting on new meds until platelets and blood counts normal for severe agitation zyprexa 5mg po prn or chlorpromazine 25mg im prn t needs workup for new psychosis, includlin MRI/CT brain/head, rpr tsh, utox infectious workup (e.g., UA), nh4 Medical history Problems Medical Problems: (1) Acquired thrombocytopenia Status: Acute (2) Anemia Status: Acute (3) Anemia Status: Acute (4) Anemia Status: Acute (5) Anemia Status: Acute (6) Chest pain Status: Acute (7) Elevated BUN Status: Acute (8) Encounter for laboratory test Status: Acute (9) Encounter for laboratory test Status: Acute (10) Encounter for laboratory test Status: Acute (11) Gingival bleeding Status: Acute (12) Leukopenia Status: Acute (13) Myelodysplastic syndrome Status: Acute (14) Normocytic anemia Status: Acute (15) Pancytopenia Status: Acute (16) Pancytopenia Status: Acute (17) Pancytopenia Status: Acute (18) Pancytopenia Status: Acute (19) Patient left without being seen Status: Acute (20) Severe anemia Status: Acute (21) Thrombocytopenia Status: Acute (22) Thrombocytopenia Status: Acute (23) Thrombocytopenia Status: Acute (24) Thrombocytopenia Status: Acute (25) Thrombocytopenia Status: Acute Allergies: Coded Allergies: No Known Allergy (Unverified , 2/17/19) Psychiatric Objective Eval Mental Status Examination: Laboratory Results Laboratory Tests Test 09/11/18 11:10 09/11/18 11:26 09/11/18 11:28 White Blood Count 3.3 10^3/ul Red Blood Count 2.42 10^6/ul Hemoglobin 7.4 g/dl Hematocrit 23.1 % Mean Corpuscular Volume 95.5 fl Mean Corpuscular Hemoglobin 30.6 pg Mean Corpuscular 32.0 g/dl Hemoglobin Concent Red Cell Distribution Width 16.1 % Platelet Count 9 10^3/UL Mean Platelet Volume 9.4 fl Immature Granulocytes % 0.300 % Neutrophils % % Segmented Neutrophils % (Manual) 24 % Band Neutrophils % (Manual) 2 % Lymphocytes % % Lymphocytes % (Manual) 62 % Reactive Lymphocytes % (Manual) 2 % Monocytes % % Monocytes % (Manual) 10 % Eosinophils % % Basophils % % Nucleated Red Blood Cells % 1 % Immature Granulocytes # 0.010 10^3/ul Neutrophils # 10^3/ul Neutrophils # (Manual) 0.8 10^3/ul Band Neutrophils # 0.0 10^3/ul Lymphocytes (Manual) 2.0 10^3/ul Lymphocytes # 10^3/ul Reactive Lymphocytes # 0.0 10^3/ul Monocytes # 10^3/ul Monocytes # (Manual) 0.3 10^3/ul Eosinophils # 10^3/ul Basophils # 10^3/ul Nucleated Red Blood Cells # 10^3/ul White Cell Morphology Comment @See below Platelet Estimate SIG DECREASED Polychromasia 3+ Anisocytosis 2+ Microcytosis 2+ Red Cell Morphology Comment @See below Sodium Level 144 mmol/L Potassium Level 3.0 mmol/L Chloride Level 104 mmol/L Carbon Dioxide Level 30 mmol/L Anion Gap 10 Blood Urea Nitrogen 17 mg/dl Creatinine 0.63 mg/dl Est Glomerular Filtrat > 60 mL/min Rate mL/min Glucose Level 97 mg/dl Calcium Level 10.0 mg/dl Total Bilirubin 0.9 mg/dl Direct Bilirubin 0.00 mg/dl Indirect Bilirubin 0.9 mg/dl Aspartate Amino 68 IU/L Transf (AST/SGOT) Alanine 98 IU/L Aminotransferase (ALT/SGPT) Alkaline Phosphatase 155 IU/L Total Protein 8.3 g/dl Albumin 4.4 g/dl Globulin 3.90 g/dl Albumin/Globulin Ratio 1.12 Salicylates Level < 1.0 mg/dl Acetaminophen Level < 10.0 ug/ml Ethyl Alcohol Level < 10.0 mg/dl Urine Color YELLOW Urine Clarity SLIGHTLY CLOUDY Urine pH 5.0 Urine Specific [place] 1.024 Urine Ketones 1+ mg/dL Urine Nitrite NEGATIVE mg/dL Urine Bilirubin NEGATIVE mg/dL Urine Urobilinogen 1+ mg/dL Urine Leukocyte Esterase NEGATIVE Nan/ul Urine Microscopic RBC 5 /HPF Urine Microscopic WBC 4 /HPF Urine Squamous Epithelial Cells FEW /HPF Urine Calcium Oxalate Crystals FEW /HPF Urine Bacteria FEW /HPF Urine Mucus MANY /HPF Urine Hemoglobin 2+ mg/dL Urine Glucose 1+ mg/dL Urine Total Protein NEGATIVE mg/dl Urine Opiates Screen Negative Urine Barbiturates Negative Urine Amphetamines Screen Negative Urine Benzodiazepines Screen Negative Urine Cocaine Screen Negative Urine Cannabinoids Negative POC Beta HCG, Qualitative NEGATIVE Assessment and Plan Recommendation/Plan Multiple antipsychotics: No Discharge Disposition: Other Legal Status: Voluntary GERARD NIELSEN Sep 11, 2018 12:46
--- NOTE | 2018-09-11 17:20 | QN ---
Documentation Comment [id number] CINDY LYLE MD Sep 11, 2018 17:20
[2018-09-11] MEDS ORDERED: DOCUSATE SODIUM 100 MG CAP PO PRN (17:30)
[2018-09-11] MEDS ORDERED: LORAZEPAM 2 MG INJ IM ONE (17:30)
[2018-09-11] MEDS ORDERED: ZOLPIDEM 5 MG TAB PO PRN (17:30)
[2018-09-11] MEDS: POTASSIUM CHLORIDE 100 ML IVPB SCH ×2 (18:49→19:30)
--- NOTE | 2018-09-11 18:58 | HP ---
DATE OF ADMISSION: 09/11/2018 HISTORY OF PRESENT ILLNESS: patient was recently discharged from this hospital with a diagnosis of myelodysplastic syndrome, hypertension, status post blood transfusion and platelet transfusion. The patient presented with weakness, noted to have a severe thrombocytopenia denies any headache, diplopia, or blurred vision. Denies any GI bleed. Denies any hematemesis, melena and the patient platelet count. The patient is being admitted for further management. PAST MEDICAL HISTORY: Hypertension, myelodysplastic syndrome, status post blood transfusion. ALLERGIES: NEGATIVE. FAMILY HISTORY: Negative. SOCIAL HISTORY: Negative. MEDICATIONS AT HOME: 1. Lorazepam. 2. Ambien. REVIEW OF SYSTEMS: HEENT: Unremarkable. RESPIRATORY: Unremarkable. CARDIOVASCULAR: Unremarkable. ABDOMEN: No hematemesis, melena, or abdominal pain. EXTREMITIES: Unremarkable. No joint problem. CENTRAL NERVOUS SYSTEM: Unremarkable. GENITOURINARY: Unremarkable. MUSCULOSKELETAL: Unremarkable. PHYSICAL EXAMINATION: GENERAL: The patient is awake, alert. VITAL SIGNS: Pulse 57, blood pressure. HEAD: Atraumatic, normocephalic. Pupils equal, reactive to light. NECK: Supple, no JVD. LUNGS: Clear. CARDIOVASCULAR: S1, S2 are normal. ABDOMEN: Soft. Bowel sounds present, no palpable mass. EXTREMITIES: No cyanosis, clubbing, or edema. CENTRAL NERVOUS SYSTEM: The patient is awake, alert with no focal deficit. LABORATORY DATA: , hematocrit 23.1, potassium 3.0, sodium 144, abnormal LFT noted., ALT 19, alkaline phosphatase 155, her. IMPRESSION: 1. Pancytopenia. 2. Thrombocytopenia. 3. History of myelodysplastic syndrome. 4. History of hypertension. PLAN: To obtain hematology/oncology consultation, potassium supplementation. Continue blood transfusion as needed including PRBC and platelet transfusion. Dictated By: CINDY LYLE MD BS/NTS Conf#: [id number] DID#: [id number] MTDD
[2018-09-11 22:00] VITALS: BP 140/75; PULSE 64; RESP 19
[2018-09-11 22:11] VITALS: Ht 147.3 cm; Wt 54.1 kg
[2018-09-11] MEDS: LORAZEPAM 1 MG TAB PO PRN (22:46)
[2018-09-12] VITALS (12 sets, daily range): BP systolic 104–139; BP diastolic 54–82; PULSE 50–73; RESP 16–20
[2018-09-12] MEDS ORDERED: POTASSIUM CHLORIDE 100 ML IVPB SCH (03:00)
[2018-09-12] MEDS: NACL 0.9% 3 ML SYG IV SCH (05:40)
[2018-09-12] MEDS: PANTOPRAZOLE 40 MG INJ IV SCH (05:40)
[2018-09-12] MEDS ORDERED: SOD CHLORIDE 0.9% 250 ML IV* ONE (09:42)
[2018-09-12] MEDS ORDERED: POTASSIUM CHLORIDE (SR) 20 MEQ TAB PO STA (13:15)
--- NOTE | 2018-09-12 13:40 | PN ---
Date/Time of Note Date/Time of Note DATE: 09/12/18 TIME: 13:39 Assessment/Plan VTE [place]axis [place] [facility] [place]: 1 [place] [facility] [place] Yes Pharmacological prophylaxis: NA/contraindicated Pharm contraindication: low risk/ambulating Lines/Catheters IV [facility]ter Type (from [facility]): Peripheral IV Assessment/Plan Hospital Course 53 y/o with 1. Pancytopenia.with hb 6.7 2. Thrombocytopenia. with plt 9 > 70 s/p 2 unit of plt 3. History of myelodysplastic syndrome. 4. History of hypertension. 5 hx hepatitis B plan 2 units of PRBC today for hb 6.7 Status post 2 units of platelets yesterday boneMarrow biopsy today Patient cannot be given any antidepressants due to pancytopenia Recheck labs tomorrow Result Diagram: 09/12/18 0851 09/12/18 0850 Results 24hrs Laboratory Tests Test 09/12/18 08:48 09/12/18 08:50 09/12/18 08:51 Absolute Reticulocyte Count 0.037 Percent Reticulocyte Count 1.8 H Lactate Dehydrogenase 565 Sodium Level 143 Potassium Level 3.4 L Chloride Level 107 Carbon Dioxide Level 32 H Anion Gap 4 L Blood Urea Nitrogen 17 Creatinine 0.63 Est Glomerular Filtrat > 60 Rate mL/min Glucose Level 124 Calcium Level 9.2 Total Bilirubin 0.6 Direct Bilirubin 0.00 Indirect Bilirubin 0.6 Aspartate Amino Transf (AST/SGOT) 59 H Alanine 97 H Aminotransferase (ALT/SGPT) Alkaline Phosphatase 125 H Total Protein 6.7 # Albumin 3.6 Globulin 3.10 Albumin/Globulin Ratio 1.16 Hepatitis B Surface Antibody INDETERMINATE White Blood Count 2.0 #L Red Blood Count 2.16 L Hemoglobin 6.7 *L Hematocrit 20.6 L Mean Corpuscular Volume 95.4 Mean Corpuscular Hemoglobin 31.0 Mean Corpuscular 32.5 Hemoglobin Concent Red Cell Distribution Width 15.8 H Platelet Count 70 #L Mean Platelet Volume 9.8 Immature Granulocytes % 0.500 H Neutrophils % Segmented Neutrophils % (Manual) 20 L Lymphocytes % Lymphocytes % (Manual) 70 H Reactive Lymphocytes % (Manual) 2 H Monocytes % Monocytes % (Manual) 4 Eosinophils % (Manual) 2 Metamyelocytes % (manual) 2 H Nucleated Red Blood Cells % 0.0 Immature Granulocytes # 0.010 Neutrophils # Lymphocytes (Manual) 1.4 Lymphocytes # Reactive Lymphocytes # 0.0 Monocytes # Monocytes # (Manual) 0.0 L Metamyelocytes # 0.0 Pathologist Review (Hematology) YES Platelet Estimate DECREASED Polychromasia 2+ Poikilocytosis 1+ Anisocytosis 3+ Microcytosis 3+ Hepatitis B Surface Antigen NEGATIVE Hepatitis B Core Total Antibody REACTIVE H Subjective 24 Hr Interval Summary Free Text/Dictation Getting PRBC today for hb 6.7 Bone Marrow biopsy today Exam/Review of Systems Exam Vitals Vital Signs Date Temp Pulse Resp B/P (MAP) Pulse Ox O2 O2 Flow FiO2 Time Delivery Rate 09/12/18 97.1 61 20 107/58 100 13:27 (74) 09/12/18 Room Air 13:05 Intake and Output 09/11/18 09/11/18 09/12/18 1515:00 23:00 07:00 IntakeIntake Total 100 ml 340 ml BalanceBalance 100 ml 340 ml Exam HEAD: Atraumatic, normocephalic. Pupils equal, reactive to light. NECK: Supple, no JVD. LUNGS: Clear. CARDIOVASCULAR: S1, S2 are normal. ABDOMEN: Soft. Bowel sounds present, no palpable mass. EXTREMITIES: No cyanosis, clubbing, or edema. CENTRAL NERVOUS SYSTEM: The patient is awake, alert with no focal deficit. Results Results 24hrs Laboratory Tests Test 09/12/18 08:48 09/12/18 08:50 09/12/18 08:51 Absolute Reticulocyte Count 0.037 Percent Reticulocyte Count 1.8 H Lactate Dehydrogenase 565 Sodium Level 143 Potassium Level 3.4 L Chloride Level 107 Carbon Dioxide Level 32 H Anion Gap 4 L Blood Urea Nitrogen 17 Creatinine 0.63 Est Glomerular Filtrat > 60 Rate mL/min Glucose Level 124 Calcium Level 9.2 Total Bilirubin 0.6 Direct Bilirubin 0.00 Indirect Bilirubin 0.6 Aspartate Amino Transf (AST/SGOT) 59 H Alanine 97 H Aminotransferase (ALT/SGPT) Alkaline Phosphatase 125 H Total Protein 6.7 # Albumin 3.6 Globulin 3.10 Albumin/Globulin Ratio 1.16 Hepatitis B Surface Antibody INDETERMINATE White Blood Count 2.0 #L Red Blood Count 2.16 L Hemoglobin 6.7 *L Hematocrit 20.6 L Mean Corpuscular Volume 95.4 Mean Corpuscular Hemoglobin 31.0 Mean Corpuscular 32.5 Hemoglobin Concent Red Cell Distribution Width 15.8 H Platelet Count 70 #L Mean Platelet Volume 9.8 Immature Granulocytes % 0.500 H Neutrophils % Segmented Neutrophils % (Manual) 20 L Lymphocytes % Lymphocytes % (Manual) 70 H Reactive Lymphocytes % (Manual) 2 H Monocytes % Monocytes % (Manual) 4 Eosinophils % (Manual) 2 Metamyelocytes % (manual) 2 H Nucleated Red Blood Cells % 0.0 Immature Granulocytes # 0.010 Neutrophils # Lymphocytes (Manual) 1.4 Lymphocytes # Reactive Lymphocytes # 0.0 Monocytes # Monocytes # (Manual) 0.0 L Metamyelocytes # 0.0 Pathologist Review (Hematology) YES Platelet Estimate DECREASED Polychromasia 2+ Poikilocytosis 1+ Anisocytosis 3+ Microcytosis 3+ Hepatitis B Surface Antigen NEGATIVE Hepatitis B Core Total Antibody REACTIVE H Medications Medication Current Medications Lorazepam (Ativan) 1 mg HS PRN PO SLEEP Last administered on 09/11/18 22:46; Admin Dose 1 MG; Start 09/11/18 at 17:30 Zolpidem Tartrate (Ambien) 5 mg QHS PRN PO INSOMNIA; Start 09/11/18 at 17:30 IV Flush (NS 3 ml) 3 ml PER PROTOCOL IV Last administered on 09/12/18 05:40; Admin Dose 3 ML; Start 09/11/18 at 17:30 Ondansetron HCl (Zofran Inj) 4 mg Q6H PRN IV NAUSEA/VOMITING; Start 09/11/18 at 17:30 Acetaminophen (Tylenol Tab) 650 mg Q6H PRN PO .PAIN 1-3 OR TEMP Last administered on 09/12/18at 06:00; Admin Dose 650 MG; Start 09/11/18 at 17:30 Docusate Sodium (Colace) 100 mg Q12H PRN PO .CONSTIPATION; Start 09/11/18 at 17:30 Pantoprazole (Protonix Iv) 40 mg DAILY@06 IV Last administered on 09/12/18at 05:40; Admin Dose 40 MG; Start 09/12/18 at 06:00 INGRID OZUNA MD Sep 12, 2018 13:40
--- NOTE | 2018-09-12 14:04 | CONS ---
Assessment/Plan Assessment/Plan Hospital Course (Demo Recall) 1. 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 will recheck cytogenetics, Flow cytometry with [facility] FLAER test -repeat bone marrow bx and perform next gen sequencing to assess her prognosis and need for bone marrow transplant. -epo level 1935 (04/2018) therefore she would not benefit form procrit -need to rule out [facility]. will check LDH, Haptogobin, STEPHANY, retic and T bili to assess for hemolysis. will also check Flow Cytometry including FLAER test as this is very specific for [facility] -current Hg < 7. will transfuse 2 units of PRBCs at this time #Active Hep B -abdominal ultrasound from 2016 demonstrates cirrhosis -on entecavir 0.5mg q day as an out patient Consultation Date/Type/Reason Admit Date/Time Sep 11, 2018 at 12:09 Date of Consultation: Sep 12, 2018 Type of Consult hematology Reason for Consultation MDS Requesting Provider: CINDY LYLE Date/Time of Note DATE: 09/12/18 TIME: 14:02 Hx of Present Illness The patient is a 52-year-old female with multiple comorbidities,the patient was seen once by Dr. Chapa she had several years ago for anemia and thrombocytopenia. She claims that over the past several months has been hospitalized and frequent episodes for severe anemia/thrombocytopenia. She was seen by Dr. Dane Argueta [facility], according to patient. She said multiple blood transfusions.Patient has episode of occasional epistaxis, gum bleeding, easy bruisability. Her platelets ranged from 8-15,000, absolute natural count between 600-1500 with anemia.no episodes of melena or hematochezia. No sign of infection. patient had a recent subdural hematoma. 09/2016 PT had a bone marrow bx done at [facility] which revealed the following: The marrow cellularity varies and is approximately 50%. The M:E ratio is 1-2:1. Maturation of myeloid and erythroid series appears to be normal. Megakaryocytes are adequate in number and normal in morphology. There is increased plasma cells identified with some showing perivascular distribution. Flow Cytometry and Cytogenetics were normal at this time PT was recently admitted to [facility] again with severe thrombocytopenia and anemia where she needed transfusion. She is now here for further follow up. Pt states she had a repeat bone marrow b[facility] -02/04/18 pt had transfusion -03/[address] Covington at [facility] -05/05/2018 Hg 8.2 platelets 11 WBC 2.9. currently on Entecavir and Promacta -09/11/18 pt admitted to [facility] with platelets 9, Hg 7.4. States she is compliant with Revlimid 5mg q day, Entecavir and promacta 25 mg q day Constitutional: no complaints, other (fatigued) Eyes: no complaints ENT: no complaints Respiratory: no complaints Cardiovascular: no complaints Gastrointestinal: no complaints Genitourinary: no complaints Musculoskeletal: back pain, bone/joint pain Skin: no complaints Neurologic: no complaints Endocrine: no complaints Past Medical History insomnia Hypertension Deficiency anemia chronic pain Hepatitis B Home Meds Reported Medications Lorazepam* (Lorazepam*) 1 Mg Tablet, 1 MG PO HS PRN for SLEEP, #30 TAB 09/11/18 Zolpidem Tartrate* (Ambien*) 5 Mg Tablet, 5 MG PO QHS PRN for INSOMNIA, #30 TAB 01/15/18 Discontinued Reported Medications Hydrocodone/Acetaminophen (Arnold 5-325 Tablet) 1 Each Tablet, 1 EACH PO NEEDED, TAB 01/15/18 Ferrous Sulfate* (Ferrous Sulfate*) 325 Mg Tabec, 325 MG PO DAILY, TAB 01/15/18 Amlodipine Besylate* (Amlodipine Besylate*) 10 Mg Tablet, 10 MG PO DAILY, #30 TAB 01/15/18 Discontinued Scripts Docusate Sodium* (Colace*) 100 Mg Capsule, 100 MG PO BID for constipation, #60 CAP Prov:INGRID OZUNA MD 05/12/18 Lorazepam* (Lorazepam*) 0.5 Mg Tablet, 0.5 MG PO Q8H PRN for ANXIETY for 2 Days, TAB Prov:INGRID OZUNA MD 05/12/18 Medications Current Medications Lorazepam (Ativan) 1 mg HS PRN PO SLEEP Last administered on 09/11/18at 22:46; Admin Dose 1 MG; Start 09/11/18 at 17:30 Zolpidem Tartrate (Ambien) 5 mg QHS PRN PO INSOMNIA; Start 09/11/18 at 17:30 IV Flush (NS 3 ml) 3 ml PER PROTOCOL IV Last administered on 09/12/18at 05:40; Admin Dose 3 ML; Start 09/11/18 at 17:30 Ondansetron HCl (Zofran Inj) 4 mg Q6H PRN IV NAUSEA/VOMITING; Start 09/11/18 at 17:30 Acetaminophen (Tylenol Tab) 650 mg Q6H PRN PO .PAIN 1-3 OR TEMP Last administered on 09/12/18at 06:00; Admin Dose 650 MG; Start 09/11/18 at 17:30 Docusate Sodium (Colace) 100 mg Q12H PRN PO .CONSTIPATION; Start 09/11/18 at 17:30 Pantoprazole (Protonix Iv) 40 mg DAILY@06 IV Last administered on 09/12/18at 05:40; Admin Dose 40 MG; Start 09/12/18 at 06:00 Allergies: Coded Allergies: No Known Allergy (Unverified , 09/11/18) Past Surgical History Past Surgical Hx: no surgical history Family History Significant Family History: no pertinent family hx Social History Alcohol Use: none Smoking Status: Never smoker Drug Use: none Exam/Review of Systems Exam Vitals Vital Signs Date Temp Pulse Resp B/P (MAP) Pulse Ox O2 O2 Flow FiO2 Time Delivery Rate 09/12/18 97.1 61 20 107/58 100 13:27 (74) 09/12/18 Room Air 13:05 Intake and Output 09/11/18 09/11/18 09/12/18 1515:00 23:00 07:00 IntakeIntake Total 100 ml 340 ml BalanceBalance 100 ml 340 ml Constitutional: alert Psych: no complaints Head: normocephalic Eyes: nl conjunctiva ENMT: nl external ears & nose Neck: supple Respiratory: clear to auscultation Cardiovascular: regular rate and rhythm Gastrointestinal: soft Musculoskeletal: nl extremities to inspection Extremities: normal pulses Results Result Diagram: 09/12/18 0851 09/12/18 0850 Results 24hrs Laboratory Tests Test 09/12/18 08:48 09/12/18 08:50 09/12/18 08:51 Absolute Reticulocyte Count 0.037 Percent Reticulocyte Count 1.8 H Lactate Dehydrogenase 565 Sodium Level 143 Potassium Level 3.4 L Chloride Level 107 Carbon Dioxide Level 32 H Anion Gap 4 L Blood Urea Nitrogen 17 Creatinine 0.63 Est Glomerular Filtrat > 60 Rate mL/min Glucose Level 124 Calcium Level 9.2 Total Bilirubin 0.6 Direct Bilirubin 0.00 Indirect Bilirubin 0.6 Aspartate Amino Transf (AST/SGOT) 59 H Alanine 97 H Aminotransferase (ALT/SGPT) Alkaline Phosphatase 125 H Total Protein 6.7 # Albumin 3.6 Globulin 3.10 Albumin/Globulin Ratio 1.16 Hepatitis B Surface Antibody INDETERMINATE White Blood Count 2.0 #L Red Blood Count 2.16 L Hemoglobin 6.7 *L Hematocrit 20.6 L Mean Corpuscular Volume 95.4 Mean Corpuscular Hemoglobin 31.0 Mean Corpuscular 32.5 Hemoglobin Concent Red Cell Distribution Width 15.8 H Platelet Count 70 #L Mean Platelet Volume 9.8 Immature Granulocytes % 0.500 H Neutrophils % Segmented Neutrophils % (Manual) 20 L Lymphocytes % Lymphocytes % (Manual) 70 H Reactive Lymphocytes % (Manual) 2 H Monocytes % Monocytes % (Manual) 4 Eosinophils % (Manual) 2 Metamyelocytes % (manual) 2 H Nucleated Red Blood Cells % 0.0 Immature Granulocytes # 0.010 Neutrophils # Lymphocytes (Manual) 1.4 Lymphocytes # Reactive Lymphocytes # 0.0 Monocytes # Monocytes # (Manual) 0.0 L Metamyelocytes # 0.0 Pathologist Review (Hematology) YES Platelet Estimate DECREASED Polychromasia 2+ Poikilocytosis 1+ Anisocytosis 3+ Microcytosis 3+ Hepatitis B Surface Antigen NEGATIVE Hepatitis B Core Total Antibody REACTIVE H Medications Medication Current Medications Lorazepam (Ativan) 1 mg HS PRN PO SLEEP Last administered on 09/11/18at 22:46; Admin Dose 1 MG; Start 09/11/18 at 17:30 Zolpidem Tartrate (Ambien) 5 mg QHS PRN PO INSOMNIA; Start 09/11/18 at 17:30 IV Flush (NS 3 ml) 3 ml PER PROTOCOL IV Last administered on 09/12/18at 05:40; Admin Dose 3 ML; Start 09/11/18 at 17:30 Ondansetron HCl (Zofran Inj) 4 mg Q6H PRN IV NAUSEA/VOMITING; Start 09/11/18 at 17:30 Acetaminophen (Tylenol Tab) 650 mg Q6H PRN PO .PAIN 1-3 OR TEMP Last administered on 09/12/18at 06:00; Admin Dose 650 MG; Start 09/11/18 at 17:30 Docusate Sodium (Colace) 100 mg Q12H PRN PO .CONSTIPATION; Start 09/11/18 at 17:30 Pantoprazole (Protonix Iv) 40 mg DAILY@06 IV Last administered on 09/12/18at 05:40; Admin Dose 40 MG; Start 09/12/18 at 06:00 ELDA YOUNG M.D. Sep 12, 2018 14:04
[2018-09-12] MEDS ORDERED: LIDOCAINE 1% (MPF) 5 ML VIAL ONE (14:37)
[2018-09-12] MEDS ORDERED: MIDAZOLAM 1 MG/ML 2 ML INJ ONE (15:12)
[2018-09-12] MEDS ORDERED: FENTAnyl 50 MCG/ML VIAL ONE (15:12)
--- NOTE | 2018-09-12 16:39 | HPN ---
Date/Time of Note Date/Time of Note DATE: 09/12/18 TIME: 16:39 Interval H&P Admission Note Pt. seen H&P reviewed: No system changes BATSHEVA JEFFERSON MD Sep 12, 2018 16:39
[2018-09-12] MEDS: LORAZEPAM 1 MG TAB PO PRN (20:18)
[2018-09-13 01:19] VITALS: BP 140/62; PULSE 64; RESP 18
[2018-09-13] MEDS: NACL 0.9% 3 ML SYG IV SCH (05:42)
[2018-09-13] MEDS: PANTOPRAZOLE 40 MG INJ IV SCH (05:42)
[2018-09-13 07:48] VITALS: BP 123/68; PULSE 55; RESP 20
[2018-09-13 13:10] VITALS: BP 132/75; PULSE 67; RESP 20
--- NOTE | 2018-09-13 15:01 | CONS ---
Assessment/Plan Assessment/Plan Hospital Course (Demo Recall) 1. 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 will recheck cytogenetics, Flow cytometry with [facility] FLAER test -repeat bone marrow bx and perform next gen sequencing to assess her prognosis and need for bone marrow transplant. can follow up results as an out patient -epo level 1935 (04/2018) therefore she would not benefit form procrit -need to rule out [facility]. will check LDH, Haptogobin, STEPHANY, retic and T bili to assess for hemolysis. will also check Flow Cytometry including FLAER test as this is very specific for [facility] -s/p transfuse 2 units of PRBCs at this time -need to re-refer to [facility] for evaluation for bone marrow transplant #Active Hep B -abdominal ultrasound from 2017 demonstrates cirrhosis -on entecavir 0.5mg q day as an out patient Consultation Date/Type/Reason Admit Date/Time Sep 11, 2018 at 12:09 Initial Consult Date 09/12/18 Type of Consult hematology Reason for Consultation Myelodysplastic syndrome Requesting Provider: CINDY LYLE MD Date/Time of Note DATE: 09/13/18 TIME: 14:59 24 HR Interval Summary Free Text/Dictation pt had bone marrow bx yesterday Exam/Review of Systems Exam Vitals Vital Signs Date Temp Pulse Resp B/P (MAP) Pulse Ox O2 O2 Flow FiO2 Time Delivery Rate 09/13/18 98.0 67 20 132/75 98 13:10 (94) 09/12/18 Room Air 18:45 Intake and Output 09/12/18 09/12/18 09/13/18 1515:00 23:00 07:00 IntakeIntake Total 520 ml 950 ml 500 ml BalanceBalance 520 ml 950 ml 500 ml Constitutional: alert, oriented Psych: no complaints Head: normocephalic Eyes: nl conjunctiva ENMT: nl external ears & nose Neck: supple Respiratory: clear to auscultation Cardiovascular: regular rate and rhythm Gastrointestinal: soft Musculoskeletal: nl extremities to inspection Results Result Diagram: 09/13/18 0535 09/12/18 0850 Results 24hrs Laboratory Tests Test 09/13/18 05:35 09/13/18 07:16 White Blood Count 2.7 #L Red Blood Count 3.08 #L Hemoglobin 9.5 #L Hematocrit 28.1 #L Mean Corpuscular Volume 91.2 Mean Corpuscular Hemoglobin 30.8 Mean Corpuscular Hemoglobin Concent 33.8 Red Cell Distribution Width 15.0 H Platelet Count 57 L Mean Platelet Volume 10.9 H Immature Granulocytes % 0.400 Segmented Neutrophils % (Manual) 25 L Band Neutrophils % (Manual) 2 Lymphocytes % (Manual) 58 H Reactive Lymphocytes % (Manual) 2 H Monocytes % (Manual) 8 Eosinophils % (Manual) 1 Basophils % (Manual) 1 Metamyelocytes % (manual) 1 H Promyelocytes % (Manual) 2 H Nucleated Red Blood Cells % 1.1 H Immature Granulocytes # 0.010 Neutrophils # (Manual) 0.7 L Band Neutrophils # 0.0 Lymphocytes (Manual) 1.5 Reactive Lymphocytes # 0.0 Monocytes # (Manual) 0.2 L Basophils # (Manual) 0.0 Metamyelocytes # 0.0 Promyelocytes # 0.0 Platelet Estimate DECREASED Giant Platelets 1 H Anisocytosis 1+ Macrocytosis 1+ Lab Scanned Report BLOOD TRANSFUSION Medications Medication Current Medications Lorazepam (Ativan) 1 mg HS PRN PO SLEEP Last administered on 09/12/18 20:18; Admin Dose 1 MG; Start 09/11/18 at 17:30 Zolpidem Tartrate (Ambien) 5 mg QHS PRN PO INSOMNIA; Start 09/11/18 at 17:30 IV Flush (NS 3 ml) 3 ml PER PROTOCOL IV Last administered on 09/13/18at 05:42; Admin Dose 3 ML; Start 09/11/18 at 17:30 Ondansetron HCl (Zofran Inj) 4 mg Q6H PRN IV NAUSEA/VOMITING; Start 09/11/18 at 17:30 Acetaminophen (Tylenol Tab) 650 mg Q6H PRN PO .PAIN 1-3 OR TEMP Last administered on 09/12/18at 06:00; Admin Dose 650 MG; Start 09/11/18 at 17:30 Docusate Sodium (Colace) 100 mg Q12H PRN PO .CONSTIPATION Last administered on 09/12/18at 20:18; Admin Dose 100 MG; Start 09/11/18 at 17:30 Pantoprazole (Protonix Tab) 40 mg DAILY@06 PO ; Start 09/14/18 at 06:00 ELDA YOUNG M.D. Sep 13, 2018 15:01
--- NOTE | 2018-09-13 16:21 | CONS ---
Date/Time of Note Date/Time of Note DATE: 09/13/18 TIME: 16:19 Consult Date/Type/Reason Admit Date Sep 11, 2018 at 12:09 Type of Consult Psych Ordering Provider: CINDY LYLE MD Subjective On a iobz-ho-hlep evaluation, patient denies hearing voices, she is preoccupied about going home patient denies visual hallucination denies suicidal ideation and contracted for safety. Explained the benefits and risk of medications and she declined states she does not need any medication for hallucinations or for depression. Objective Patient Appearance: Poor Hygiene Voice Loudness: Mildly Soft/Quiet Mood and Affect Description: Cooperative Mood or Affect: Cooperative Speech Pattern: Clear Thought Process: Intact Hallucination Type: None Delusion Description: Not Present ROXY KINGSLEY NP Sep 13, 2018 16:21
--- NOTE | 2018-09-13 16:35 | PDOCDIS ---
Discharge Instructions DIAGNOSIS Discharge Diagnosis pancytopenia CONDITION [id number] Patient Condition: [id number] Fair HOME CARE INSTRUCTIONS: [id number] Diet Instructions: [id number] Regular ACTIVITY: [id number] Activity Restrictions: [id number] Slowly Increase Activity Rest between Activity Avoid heavy lifting FOLLOW UP/APPOINTMENTS Follow-up Plan f/u PCP in 1 week f/u Dr agarwal in1 week INGRID OZUNA MD Sep 13, 2018 16:35
--- NOTE | 2018-09-13 17:15 | DS ---
DATE OF ADMISSION: 09/11/2018 DATE OF DISCHARGE: 09/13/2018 HISTORY OF PRESENTING ILLNESS AND HOSPITAL COURSE: This is a 52-year-old female with multiple comorb idities with a past medical history of MDS, hepatitis B followed by Dr. Liu as an outpatient, prese nted to the emergency department after the patient was noted to have low blood counts. The patient p resented complaining of weakness. Denied any GI bleed. Denies any hematemesis, any melena, any brig ht red blood per rectum. On admission, vital signs were stable. Labs showed a white count of 3.3, h emoglobin of 7.4, platelet count of 9. The patient received 2 units of platelets and the platelet co unt went up to 70. The hemoglobin dropped to 6.7. The patient was also seen by Dr. Liu for hemato logy consult. According to her, the patient will need a bone marrow biopsy to see if she is respondi ng to the treatment. The patient has a bone marrow biopsy done. The patient was feeling fine. The patient was also noted to have some hallucinations at the hospital; however felt better before the di scharge. The patient refused taking any medication for the hallucinations. Currently, white count i s 2.7, hemoglobin came up to 9.5 after 2 units of blood, platelet count of 57. Per Dr. Liu, she is stable to be discharged home. Follow up with her as an outpatient. FINAL DISCHARGE DIAGNOSES: 1. Myelodysplastic syndrome with components of aplastic anemia on Promacta and Revlimid, still pancy topenic. Need to repeat bone marrow biopsy. 2. Anemia, status post 2 units of blood. 3. Thrombocytopenia, status post 2 units of platelets. 4. Active hepatitis B on entecavir as an outpatient. 5. Depression and anxiety. FOLLOWUP: The patient was instructed to follow up with PCP in 1 to [address] Liu in 1 to 2 w eeks. Dictated By: INGRID CAREY/HENRIETTA Conf#: [id number] DID#: [id number] CC: SANCHO RAMSEY NP; CINDY LYLE MD;*EndCC*
[2018-09-13 19:17] VITALS: BP 156/79; PULSE 56; RESP 18
[2018-09-14] MEDS ORDERED: PANTOPRAZOLE (EC) 40 MG TAB PO SCH (06:00)
== END 2018-09-13 19:30 | disposition home or self-care (01) | DRG 812 ==
LOC: E/R 10:25 → 2NE 12:09
PROVIDERS: ADMIT Internal Medicine Nephrology; ATTEND Internal Medicine Nephrology
PROC: 30233R1 Transfusion of Nonautologous Platelets into Peripheral Vein, Percutaneous Approach (ICD-10-PCS; 2018-09-11)
PROC: 30233N1 Transfusion of Nonautologous Red Blood Cells into Peripheral Vein, Percutaneous Approach (ICD-10-PCS; principal; 2018-09-12)
PROC: 07DR3ZX Extraction of Iliac Bone Marrow, Percutaneous Approach, Diagnostic (ICD-10-PCS; 2018-09-12)
DX: D46.C Myelodysplastic syndrome with isolated del(5q) chromosomal abnormality (principal); D61.818 Other pancytopenia; B19.10 Unspecified viral hepatitis B without hepatic coma; R44.0 Auditory hallucinations; D61.9 Aplastic anemia, unspecified; F29 Unspecified psychosis not due to a substance or known physiological condition; I10 Essential (primary) hypertension
CPT/HCPCS: 36415; 36430; 77012; 80053; 80307; 81001; 81025; 83010; 83615; 85025; 85045; 86644; 86692; 86704; 86706; 86850; 86880; 86900; 86901; 86920; 86945; 87340; 88305; 88311; 88313; 88341; 88342; C9113; J2250; J3010; J3480; J7040; P9016; P9035

== ENCOUNTER 2018-11-15 14:25 | Inpatient (IN) | payer OTHER ==
[~2018-11-15] VITALS: Ht 152.4 cm; Wt 55.9 kg
[2018-11-15 14:35] VITALS: Ht 152.4 cm; Wt 55.9 kg
[2018-11-15] MEDS ORDERED: ONDANSETRON 4 MG INJ IV STA (16:26)
[2018-11-15] MEDS ORDERED: morphine 4 MG/ML VIAL IV STA (16:26)
--- NOTE | 2018-11-15 16:36 | ERD ---
ER Documentation Chief Complaint Chief Complaint pt is bib family with c/o chest pain starting today, HPI This is a 53-year-old male with a history of myelodysplastic syndrome, hepatitis B he is required multiple blood transfusions as she has components of aplastic anemia. She is on Promacta and Revlimid. However she still continues to have recurrent pancytopenia. The patient also has active hepatitis B on entecavir. The patient had been admitted to the hospital several months ago requiring blood transfusion. The patient indicates her last blood transfusion was last week. The patient presents to the emergency department today complaining of bilateral chest pain that has been intermittent for 48 hours and progressively worsened today. She had no fevers or shaking or chills. She denies any shortness of breath at rest or exertion. She does indicate she had recurrent epistaxis over the past several days with no sensation of blood in her posterior pharynx. She has no bleeding of her gums while brushing her teeth nor has she experienced any easy bruising. She said no hematuria. She denies any hemoptysis or melanotic stools. ROS All systems reviewed and are negative except as per history of present illness. Medications Home Meds Reported Medications Melatonin (Melatonin) Unknown Strength Tablet.sa, 2 TAB PO HS, TAB.SA 11/15/18 Alprazolam* (Alprazolam*) 1 Mg Tablet, 1 MG PO QHS PRN for ANXIETY, TAB 11/15/18 Allergies Allergies: Coded Allergies: No Known Allergy (Unverified , 11/15/18) PMhx/Soc History of Surgery: No Anesthesia Reaction: No Hx Neurological Disorder: No Hx Respiratory Disorders: No Hx Cardiac Disorders: No Hx Psychiatric Problems: No Hx Miscellaneous Medical Probl: Yes (ANEMIA, THROMBOCYTOPENIA) Hx Alcohol Use: No Hx Substance Use: No Hx Tobacco Use: No Physical Exam Vitals Vital Signs Date Temp Pulse Resp B/P (MAP) Pulse Ox O2 O2 Flow FiO2 Time Delivery Rate 11/15/18 102 20 128/103 98 Room Air 16:11 (111) 11/15/18 98.9 93 16 158/62 99 14:35 (94) Physical Exam Constitutional:Well-developed. Well-nourished. HEENT:Normocephalic. Atraumatic.Pupils were equal round reactive to light. Moist mucous membranes.No tonsillar exudates. Conjunctival pallor Neck: No nuchal rigidity. No lymphadenopathy. No posterior cervical spine tenderness or step-offs. Respiratory: Not using accessory muscles of respiration.Lungs were clear to auscultation bilaterally. No rhonchi. No rales. No wheezing. Cardiovascular: Regular rate regular rhythm.No murmurs. No rubs were appre ciated.S1, S2 normal. Distal pulses are palpable 2+ bilaterally. Bilateral reproducible chest wall tenderness with no crepitus no ecchymosis no flail chest GI: Abdomen was soft. Nontender. Non Distended. No pulsatile abdominal masses or bruits. No rebound. No guarding. Bowel sounds were present and normal. Muscle skeletal: Full range of motion of both the upper and lower extremities bilaterally.Normal muscle tone.No assymetrical calf tenderness or swelling. Skin: No petechia, no purpura. No lesions on the palms or the soles of the feet. No maculopapular rash. NEURO: Patient was alert, awake, orientated x3.No facial droop. Gait observed and normal with no ataxia.Speech had regular rate and rhythm. No focal neurological deficits. Result Diagram: 11/15/18 1645 11/15/18 1645 Results 24 hrs Laboratory Tests Test 11/15/18 16:45 White Blood Count 3.4 10^3/ul Red Blood Count 2.23 10^6/ul Hemoglobin 7.2 g/dl Hematocrit 20.7 % Mean Corpuscular Volume 92.8 fl Mean Corpuscular Hemoglobin 32.3 pg Mean Corpuscular Hemoglobin Concent 34.8 g/dl Red Cell Distribution Width 20.3 % Platelet Count 12 10^3/UL Mean Platelet Volume 9.8 fl Immature Granulocytes % 0.300 % Neutrophils % % Segmented Neutrophils % (Manual) 47 % Band Neutrophils % (Manual) 8 % Lymphocytes % % Lymphocytes % (Manual) 39 % Reactive Lymphocytes % (Manual) 1 % Monocytes % % Monocytes % (Manual) 5 % Eosinophils % % Basophils % % Nucleated Red Blood Cells % 0.0 /100WBC Immature Granulocytes # 0.010 10^3/ul Neutrophils # 10^3/ul Neutrophils # (Manual) 1.6 10^3/ul Band Neutrophils # 0.2 10^3/ul Lymphocytes (Manual) 1.3 10^3/ul Lymphocytes # 10^3/ul Reactive Lymphocytes # 0.0 10^3/ul Monocytes # 10^3/ul Monocytes # (Manual) 0.1 10^3/ul Eosinophils # 10^3/ul Basophils # 10^3/ul Nucleated Red Blood Cells # 10^3/ul Platelet Estimate SIG DECREASED Polychromasia 1+ Anisocytosis 2+ Microcytosis 2+ Macrocytosis 1+ Prothrombin Time 11.9 Sec Prothrombin Time Ratio 0.9 INR International Normalized Ratio 0.87 Activated Partial Thromboplast Time 35.4 Sec Sodium Level 145 mmol/L Potassium Level 4.4 mmol/L Chloride Level 105 mmol/L Carbon Dioxide Level 31 mmol/L Anion Gap 9 Blood Urea Nitrogen 30 mg/dl Creatinine 0.69 mg/dl Est Glomerular Filtrat Rate mL/min > 60 mL/min Glucose Level 79 mg/dl Calcium Level 11.0 mg/dl Total Bilirubin 0.3 mg/dl Direct Bilirubin 0.00 mg/dl Indirect Bilirubin 0.3 mg/dl Aspartate Amino Transf (AST/SGOT) 73 IU/L Alanine Aminotransferase (ALT/SGPT) 157 IU/L Alkaline Phosphatase 194 IU/L Creatine Kinase 53 IU/L Creatine Kinase Index 5.1 Creatinine Kinase MB (Mass) 2.69 ng/ml Troponin I < 0.012 ng/ml B-Type Natriuretic Peptide < 11 PG/ML Total Protein 8.6 g/dl Albumin 4.6 g/dl Globulin 4.00 g/dl Albumin/Globulin Ratio 1.15 Current Medications Medications Dose Sig/Kathrin Start Time Status Last (Trade) Ordered Route PRN Stop Time Admin Dose Reason Admin Morphine 4 mg ONCE STAT 11/15/18 DC 11/15/18 Sulfate IV 16:26 16:45 (morphine) 11/15/18 16:28 Ondansetron 4 mg ONCE STAT 11/15/18 DC 11/15/18 HCl (Zofran IV 16:26 16:45 Inj) 11/15/18 16:28 Lorazepam 1 mg ONCE ONCE 11/15/18 DC 11/15/18 (Ativan) IV 18:00 17:50 11/15/18 18:01 Ondansetron 4 mg ER BRIDGE 11/15/18 HCl (Zofran PRN IV 18:00 Inj) NAUSEA/VOMITI 11/16/18 17:59 NG 650 mg ER BRIDGE 11/15/18 Acetaminophen PRN PO 18:00 (Tylenol .MILD PAIN 11/16/18 17:59 Tab) 1-3 OR TEMP Procedures/MDM The patient presented to the emergency department with chest pain. My clinical evaluation and workup was to distinguish minor causes of chest pain from acute life threatening conditions such as myocardial infarction, pulmonary embolism, aortic dissection, esophageal rupture, cardiac tamponade. The patient was placed on a calibration engineer and continuous pulse oximetry. IV access established by nursing staff. Aspirin was not given given her history of pancytopenia. The patient was given intravenous morphine and Zofran for analgesic control. 12 Lead EKG tracing ordered and reviewed by myself showed: Normal sinus rhythm of 93 bpm and no arrhythmia. NM interval normal. QRS duration normal. No ST segment elevation No ST segment depression. No changes consistent with acute ischemia. The patient's platelet count was 12,000. The patient was anemic with hemoglobin 7.2. The patient did provide a written consent for platelet pack transfusion as well as 1 unit of packed red blood cells. Patient will be admitted to the telemetry service to undergo serial twelve-lead EKG tracings and cardiac set of enzymes as the patient also complained of chest pain. However the patient's cardiac troponin was within normal limits. Patient will be admitted under the care of Dr. Elam in serious condition Critical Care: Time: 45 minutes Treatments/Evaluations: Close monitoring and treatment of unstable vital signs, cardiorespiratory, and neurologic status, while maintaining tight balance of fluid, respiratory, and cardiac interventions. Time does not include performing any of the above billable procedures. Departure Diagnosis: Primary Impression: Chest pain Chest pain type: unspecified Qualified Codes: R07.9 - Chest pain, unspecified Additional Impressions: Thrombocytopenia Anemia Anemia type: unspecified type Qualified Codes: D64.9 - Anemia, unspecified Condition: Serious YUMIKO RAHMAN MD Nov 15, 2018 16:36
[2018-11-15] MEDS ORDERED: ALPR1TAB7 PO (17:09)
[2018-11-15] MEDS ORDERED: MELA3TAB17 PO (17:10)
[2018-11-15] MEDS ORDERED: ACETAMINOPHEN 325 MG TAB PO PRN ×2 (18:00→23:30)
[2018-11-15] MEDS ORDERED: LORAZEPAM 2 MG INJ IV ONE (18:00)
[2018-11-15] MEDS ORDERED: ONDANSETRON 4 MG INJ IV PRN ×2 (18:00→23:30)
[2018-11-15 21:00] VITALS: PULSE 125
[2018-11-15 21:30] VITALS: BP 153/70; PULSE 111; RESP 20
[2018-11-15] MEDS ORDERED: POLYETHYLENE GLYCOL 17 GM PACKET PO PRN (23:30)
[2018-11-15] MEDS ORDERED: LORAZEPAM 1 MG TAB PO PRN (23:30)
[2018-11-15] MEDS ORDERED: DIPHENHYDRAMINE 50 MG INJ IV ONE (23:30)
[2018-11-16] VITALS (12 sets, daily range): BP systolic 100–123; BP diastolic 52–68; PULSE 74–119; RESP 17–20
[2018-11-16] MEDS: DOCUSATE SODIUM 100 MG CAP PO PRN (05:30)
[2018-11-16] MEDS: PANTOPRAZOLE (EC) 40 MG TAB PO SCH (05:30)
--- NOTE | 2018-11-16 12:04 | QN ---
Documentation Comment seen and examined INGRID OZUNA MD Nov 16, 2018 12:04
[2018-11-16] MEDS ORDERED: NITROGLYCERIN (SL) 0.4 MG TAB SL PRN (18:00)
--- NOTE | 2018-11-16 18:31 | RADRPT ---
Echocardiogram Report Patient Name: Lanette FROST ID: [id number] : 1965 (53y 3m)Study Date: 11/16/2018 8:13:05 AM Gender: FAccession #: [id number] Tech: ME Location: Ref.Physician: INGRID OZUNA Height(Cm): BSA: Weight(Kg): Quality: GoodAccount #: Procedures: Echocardiographic Report: Transthoracic echocardiogram with complete 2D, M-Mode, and doppler examination. Indications: Chest Pain. Measurements: 2D/M Mode Doppler Measurement Value Normal Range Measurement Value Normal Range LVIDd 2D 3.4 [ 3.8 - 5.2 ] cm AV Peak Fredo 1.5 [ 100.0 - 170.0 ] cm/sec LVIDs 2D 2.4 [ 2.2 - 3.5 ] cm AV Peak PG 9.0 [ 2.0 - 9.0 ] mmHg LVPWd 2D 1.2 [ 0.6 - 0.9 ] cm LVOT Peak Fredo 1.1 [ 70.0 - 110.0 ] cm/sec IVSd 2D 1.2 [ 0.6 - 0.9 ] cm LVOT Peak PG 4.0 [ 2.0 - 6.0 ] mmHg AoR Diam 2D 2.4 [ 2.3 - 3.1 ] cm Lat E` Fredo 0.1 [ 10.0 - 15.0 ] cm/sec EDV 2D 47.1 [ 46.0 - 106.0 ] ml TR Peak Fredo 2.1 [ 100.0 - 280.0 ] cm/sec ESV 2D 19.7 [ 14.0 - 42.0 ] ml TR Peak PG 18.0 mmHg EF 2D 58.2 [ 54.0 - 74.0 ] percent RVSP 21.0 [ 10.0 - 36.0 ] mmHg LA Dimen 2D 2.9 [ 2.7 - 3.8 ] cm RA Pressure 3.0 mmHg Findings: Left Ventricle: Normal left ventricular systolic function. Normal left ventricular cavity size. Mild concentric left ventricular hypertrophy. Ejection fraction is visually estimated at 55-60 %. Abnormal Diastolic Function. Right Ventricle: Normal right ventricular size. Normal right ventricular systolic function. Left Atrium: The left atrium is normal in size. Right Atrium: The right atrium is normal in size. Mitral Valve: Normal appearance and function of the mitral valve with trace physiologic regurgitation. Aortic Valve: Normal appearance of the aortic valve. No significant aortic stenosis or insufficiency. Tricuspid Valve: Normal appearance of the tricuspid valve. Estimated peak PA systolic pressure 21 mmHg. There is trace tricuspid regurgitation. Pulmonic Valve: Pulmonic valve not well visualized. Pericardium: Normal pericardium with no significant pericardial effusion. Aorta: Normal aortic root. IVC: Normal size and normal respiratory collapse consistent with normal right atrial pressure. Conclusions: Normal left ventricular systolic function. Normal left ventricular cavity size. Mild concentric left ventricular hypertrophy. Ejection fraction is visually estimated at 55-60 %. Abnormal Diastolic Function. n. Normal appearance and function of the mitral valve with trace physiologic regurgitation. Normal appearance of the tricuspid valve. Estimated peak PA systolic pressure 21 mmHg. There is trace tricuspid regurgitation. Electronically Signed By: Duarte Mike 2018-11-16 18:30:36 PDT
[2018-11-16] MEDS ORDERED: MELATONIN 5 MG TABLET PO SCH (21:00)
[2018-11-17] VITALS (7 sets, daily range): BP systolic 112–131; BP diastolic 64–80; PULSE 64–83; RESP 17–19
--- NOTE | 2018-11-17 01:09 | CONS ---
DATE OF ADMISSION: 11/15/2018 DATE OF CONSULTATION: 11/16/2018 REASON FOR CONSULTATION: Chest pain, assess for acute coronary syndrome. REQUESTING PHYSICIAN: Jada Dodson M.D. HISTORY OF PRESENT ILLNESS: Ms. Hannon is a very pleasant 53-year-old female with a history of anemia, thrombocytopenia requiring transfusions, who presented with epistaxis, thrombocytopenia, pancytopeni a. Additionally, upon arrival, the patient had complaints of substernal chest pain, poorly described , occurring at rest and with exertion and with movement of her upper torso. The patient states chest pain was on and off throughout the day. It is the second time in a year that she has had similar sy mptoms. Initially upon arrival, temperature 98.9, blood pressure 158/62, pulse ____, respiratory rat e 16, satting 98%. The patient's labs revealed white blood cell count 3.4, hemoglobin 7.2, platelet count of 12. Sodium 145, potassium 4.4, creatinine 0.6, BUN 30. Troponin negative. BNP of less anup n 11. INR 0.87. The patient underwent a chest x-ray revealing no acute cardiopulmonary ____. [facility] normal sinus rhythm, rate 93, normal axis, normal intervals, nonsp ecific ST-T abnormalities diffusely. The patient was subsequently admitted to the floor and since ad kyle to the floor denies ongoing chest pain. She has had negative troponins x3. PAST MEDICAL HISTORY: As above in HPI. MEDICATIONS: Currently, in the hospital: 1. Melatonin 5 at bedtime. 2. Protonix. 3. Tylenol. 4. Zofran. 5. Ativan. 6. Colace. 7. MiraLax. 8. Zofran. 9. Tylenol. ALLERGIES: NO KNOWN DRUG ALLERGIES. SOCIAL HISTORY: No current tobacco, ETOH or illicit drug use. FAMILY HISTORY: No sudden cardiac or early CAD. REVIEW OF SYSTEMS: As above in HPI. CONSTITUTIONAL: No fevers, chills. PULMONARY: No current shortness of breath. CARDIOVASCULAR: No current chest pain or chest pain on admit. GASTROINTESTINAL: No vomiting. GENITOURINARY: No hematuria. MUSCULOSKELETAL: Degenerative joint disease. PSYCHIATRIC: The patient has depression with possible anxiety. NEUROLOGIC: No documented history of CVA. PHYSICAL EXAMINATION: VITAL SIGNS: Temperature of 98.7, blood pressure most recently 100/68, pulse 74, respiratory rate 18 , sat 98%. GENERAL: The patient is alert, awake, receiving a transfusion. NECK: JVP approximately 8 to 9 cm of water. CHEST: Fair air movement throughout. HEART: Regular rate and rhythm. Normal S1, S2, I/ systolic murmur, nondisplaced PMI. ABDOMEN: Positive bowel sounds, soft. EXTREMITIES: Reveal no significant edema, 1+ pulses in bilateral posterior tibial. LABORATORY DATA: As above in HPI, with most recent from today with a 4.7, hemoglobin 7.4, platelet c ount of 75. Sodium 143, potassium 4.5, creatinine 0.7, BUN 23. IMAGING STUDIES: As above in the HPI. No further imaging for my review at this time. ECG: As above in HPI. No further electrocardiograms for my review at this time. IMPRESSION: 1. Chest pain. Assess for acute coronary syndrome, somewhat atypical symptomatology for cardiac jaime ology at this time. 2. Abnormal electrocardiogram with nonspecific asymptomatic. Assess for acute coronary syndrome. 3. Hypertension, labile, currently borderline hypotension. 4. Tachycardia, currently improved with EKG consistent with sinus tachycardia. 5. Pancytopenia, receiving transfusion. RECOMMENDATIONS: 1. At this time, would maintain the patient on telemetry monitoring to follow rhythm and rate contro l closely. 2. Follow the patient's blood pressure closely and consider initiation of oral nitrates for recurren t chest pain with the patient sublingual nitroglycerin for recurrent chest pain at this time. 3. We will follow up the patient's 2D echo to further assess ejection fraction, wall motion, and shirley or valve. 4. We will continue to check serial EKGs, assess for significant ongoing changes, an EKG in morning, EKG for complaints of chest pain or change in rhythm. 5. Follow the patient's hemoglobin closely with transfusions as necessary and followup the patient's platelet count closely. Transfuse as necessary. 6. Ongoing hematology evaluation of pancytopenia. Thank you for allowing me to take part in the care of this patient. I will continue to follow closel y with you, with recommendations to be made as the patient progresses through her inpatient hospital clinical course. Dictated By: STEVEN LAWSON/HENRIETTA Conf#: [id number] DID#: [id number] CC: JADA DODSON;*[facility]*
--- NOTE | 2018-11-17 02:58 | HP ---
DATE OF ADMISSION: 11/15/2018 REASON FOR ADMISSION: Chest pain, pancytopenia. HISTORY OF PRESENT ILLNESS: A 53-year-old female with a past medical history of myelodysplastic synd jim; hepatitis B, requiring blood transfusions, on Promacta and Revlimid; history of pancytopenia, o n multiple admissions in the past; anxiety disorder. She presented to the emergency department on complaining of bilateral chest pain, intermittent for the last few hours and progressively w orsened today. The patient was also feeling some shortness of breath. The patient also was having s ome anxiety due to her issues. She was also having some recurrent epistaxis for the past few days. Also had some bleeding of her gums while brushing her teeth. Denied any hematuria, any hemoptysis or melanotic stools. The patient denied any cough and fever and chills. She presented to the emergenc y department, temperature was 98.9, blood pressure was 158/62, heart rate was 111. Labs showed white count 3.2, hemoglobin of 7.2, platelet count of 12, BUN and creatinine within normal limit. AST 73, ALT 157, alkaline phosphatase is 194. The patient had first troponin less than 0.012. EKG negative for any acute ST or T wave abnormalities. Chest x-ray: No acute cardiopulmonary disease and vida sparrow was admitted for further management. PAST MEDICAL HISTORY: 1. Myelodysplastic syndrome. 2. Anxiety disorder. 3. Hypertension. 4. Hepatitis B, on Entecavir. 5. 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 ALLERGIES: NO KNOWN ALLERGIES. PAST SURGICAL HISTORY: None. SOCIAL HISTORY: Denies any history of smoking, alcohol or any drug use. MEDICATIONS: Medications taken at home are: 1. medication. 2. Entecavir, which has been finished. 3. Zolpidem. 4. Ativan. FAMILY HISTORY: Lives with her mother. REVIEW OF SYSTEMS: The patient complains of generalized anxiety, epistaxis, weakness, some chest omega n. Denies any cough, fevers, chills, abdominal pain, nausea, vomiting, or diarrhea. PHYSICAL EXAMINATION: VITAL SIGNS: Currently, temperature is 97.1, pulse was up to 110, respiratory rate 18, blood pressur e 100/68, saturating 98%. GENERAL: The patient does appear awake, alert, oriented, appears to be in moderate distress, appears very anxious. HEENT: Pupils equal, round, reactive to light. NECK: Supple. No JVD. HEART: Regular rate and rhythm. LUNGS: Clear to auscultation bilaterally. ABDOMEN: Some tenderness present in the epigastric region. EXTREMITIES: No clubbing, cyanosis, or edema. Some bruising noted. NEUROLOGIC: Nonfocal. LABORATORY DATA: BUN and creatinine within normal limit. Troponin less than 0.012. Abnormal LFTs. AST 73, ALT 157, alkaline phosphatase 194. White count 3.4, hemoglobin 7.2, platelet count is 12. Chest x-ray is negative. EKG: No acute ST-T abnormalities. ASSESSMENT: This is a 53-year-old female who presented with: 1. Chest pain, rule out acute coronary syndrome; however, the patient has underlying severe anxiety disorder. 2. Epigastric pain with abnormal LFTs. The patient has history of active hepatitis B. 3. Pancytopenia with significant thrombocytopenia and anemia. 4. Hypertension. 5. Anxiety disorder. 6. History of myelodysplastic syndrome with aplastic anemia. PLAN: At this period of time, the patient is admitted to telemetry. The patient cannot be on aspiri n due to severe anemia. We will get serial EKGs and troponin. Cardiology consult will be done. The patient will be on antianxiety medicines. We will also check abdominal ultrasound. The patient annalee angel received 1 unit of platelets already, 1 unit of blood. The rest of the treatment will depend on the patient's hospitalization course. Dictated By: INGRID CAREY/HENRIETTA Conf#: [id number] DID#: [id number]
[2018-11-17] MEDS: PANTOPRAZOLE (EC) 40 MG TAB PO SCH (05:45)
[2018-11-17] MEDS: DOCUSATE SODIUM 100 MG CAP PO PRN (05:45)
[2018-11-17] MEDS ORDERED: ZOLPIDEM 5 MG TAB PO PRN (10:30)
[2018-11-17] MEDS ORDERED: MAGNESIUM HYDROXIDE 30ML CUP PO SCH (10:30)
--- NOTE | 2018-11-17 10:34 | PSY ---
Date/Time of Note Date/Time of Note DATE: 11/17/18 TIME: 10:30 Psychiatric Subjective Eval Consent Pt consented to telemedicine: No Subjective Evaluation Patient location: inpatient Chief Complaint: pt is bib family with c/o chest pain starting today, History of present illness Patient is a 53-year-old female with a past medical history of hepatitis B, myelodysplastic syndrome; and pancytopenia. On a [id number] evaluation, patient is increasingly anxious, reports of difficulty sleeping, states she has tried trazodone, melatonin, and to have not been effective. Discussed risk and benefits of Ambien and patient verbalized understanding. Past psychiatric history History of anxiety Medical history Problems Medical Problems: (1) Acquired thrombocytopenia Status: Acute (2) Anemia Status: Acute (3) Anemia Status: Acute (4) Anemia Status: Acute (5) Anemia Status: Acute (6) Anemia Status: Acute (7) Chest pain Status: Acute (8) Chest pain Status: Acute (9) Elevated BUN Status: Acute (10) Encounter for laboratory test Status: Acute (11) Encounter for laboratory test Status: Acute (12) Encounter for laboratory test Status: Acute (13) Gingival bleeding Status: Acute (14) Leukopenia Status: Acute (15) Myelodysplastic syndrome Status: Acute (16) Normocytic anemia Status: Acute (17) Pancytopenia Status: Acute (18) Pancytopenia Status: Acute (19) Pancytopenia Status: Acute (20) Pancytopenia Status: Acute (21) Patient left without being seen Status: Acute (22) Severe anemia Status: Acute (23) Thrombocytopenia Status: Acute (24) Thrombocytopenia Status: Acute (25) Thrombocytopenia Status: Acute (26) Thrombocytopenia Status: Acute (27) Thrombocytopenia Status: Acute (28) Thrombocytopenia Status: Acute Allergies: Coded Allergies: No Known Allergy (Unverified , 11/15/18) Substance Abuse Substance abuse history: No Prior substance abuse treatmen: No Social History Marital status: other DPA/Conservatorship: No (Is) Psychiatric Objective Eval Review of Systems: Review of Systems: Not Applicable Physical Examination: Sleep: Insomnia Appetite: Adequate Energy: Adequate Interest: Adequate Mental Status Examination: Appearance: Groomed Eye Contact: Fair Behavior: Cooperative Speech: Clear AFFECT: Anxious Mood: Anxious Though Process: Linear Thought Content: Normal Orientation: x4 Insight: Intact Judgement: Intact Attention Span: Intact Laboratory Results Laboratory Tests Test 11/15/18 16:45 11/16/18 00:57 11/16/18 05:15 11/16/18 10:39 White Blood 3.4 10^3/ul 4.2 10^3/ul 4.7 10^3/ul Count Red Blood Count 2.23 10^6/ul 2.25 10^6/ul 2.36 10^6/ul Hemoglobin 7.2 g/dl 7.1 g/dl 7.4 g/dl Hematocrit 20.7 % 20.5 % 21.5 % Mean 92.8 fl 91.1 fl 91.1 fl Corpuscular Volume Mean 32.3 pg 31.6 pg 31.4 pg Corpuscular Hemoglobin Mean 34.8 g/dl 34.6 g/dl 34.4 g/dl Corpuscular Hemoglobin Conc ent Red Cell 20.3 % 19.8 % 20.4 % Distribution Width Platelet Count 12 10^3/UL 74 10^3/UL 75 10^3/UL Mean Platelet 9.8 fl 11.0 fl 10.7 fl Volume Immature 0.300 % 0.700 % 0.400 % Granulocytes % Neutrophils % % % % Segmented 47 % 48 % 57 % Neutrophils % (Manual) Band 8 % 19 % 14 % Neutrophils % (Manual) Lymphocytes % % % % Lymphocytes % 39 % 31 % 24 % (Manual) Reactive 1 % Lymphocytes % (Manual) Monocytes % % % % Monocytes % 5 % 2 % 5 % (Manual) Eosinophils % % % % Basophils % % % % Nucleated Red 0.0 /100WBC 0.0 /100WBC 0.0 /100WBC Blood Cells % Immature 0.010 10^3/ul 0.030 10^3/ul 0.020 10^3/ul Granulocytes # Neutrophils # 10^3/ul 10^3/ul 10^3/ul Neutrophils # 1.6 10^3/ul 2.0 10^3/ul 2.7 10^3/ul (Manual) Band 0.2 10^3/ul 0.7 10^3/ul 0.6 10^3/ul Neutrophils # Lymphocytes 1.3 10^3/ul 1.3 10^3/ul 1.1 10^3/ul (Manual) Lymphocytes # 10^3/ul 10^3/ul 10^3/ul Reactive 0.0 10^3/ul Lymphocytes # Monocytes # 10^3/ul 10^3/ul 10^3/ul Monocytes # 0.1 10^3/ul 0.0 10^3/ul 0.2 10^3/ul (Manual) Eosinophils # 10^3/ul 10^3/ul 10^3/ul Basophils # 10^3/ul 10^3/ul 10^3/ul Nucleated Red 10^3/ul 10^3/ul 10^3/ul Blood Cells # Platelet SIG DECREASED DECREASED DECREASED Estimate Polychromasia 1+ 1+ 1+ Anisocytosis 2+ 2+ 2+ Microcytosis 2+ 1+ Macrocytosis 1+ 1+ 1+ Prothrombin 11.9 Sec Time Prothrombin 0.9 Time Ratio INR 0.87 International Normalized Rati o Activated 35.4 Sec Partial Thrombo plast Time Path Consult SHAN CHAVES, Signing Patholo gist Sodium Level 145 mmol/L 143 mmol/L Potassium Level 4.4 mmol/L 4.5 mmol/L Chloride Level 105 mmol/L 106 mmol/L Carbon Dioxide 31 mmol/L 27 mmol/L Level Anion Gap 9 10 Blood Urea 30 mg/dl 23 mg/dl Nitrogen Creatinine 0.69 mg/dl 0.76 mg/dl Est Glomerular > 60 mL/min > 60 mL/min Filtrat Rate mL/min Glucose Level 79 mg/dl 101 mg/dl Calcium Level 11.0 mg/dl 10.2 mg/dl Total Bilirubin 0.3 mg/dl Direct 0.00 mg/dl Bilirubin Indirect 0.3 mg/dl Bilirubin Aspartate Amino 73 IU/L Transf (AST/SGO T) Alanine 157 IU/L Aminotransferas e (ALT/SGPT) Alkaline 194 IU/L Phosphatase Creatine Kinase 53 IU/L Creatine Kinase 5.1 Index Creatinine 2.69 ng/ml Kinase MB (Mass) Troponin I < 0.012 ng/ml < 0.012 ng/ml < 0.012 ng/ml B-Type < 11 PG/ML Natriuretic Peptide Total Protein 8.6 g/dl Albumin 4.6 g/dl Globulin 4.00 g/dl Albumin/Globuli 1.15 n Ratio Hypochromasia 1+ 1+ Test 11/16/18 19:40 11/17/18 05:28 11/17/18 05:33 Ammonia < 9 umol/l Lab Scanned BLOOD TRANSFUS Report ION White Blood 3.4 10^3/ul Count Red Blood Count 2.92 10^6/ul Hemoglobin 9.1 g/dl Hematocrit 26.2 % Mean 89.7 fl Corpuscular Volume Mean 31.2 pg Corpuscular Hemoglobin Mean 34.7 g/dl Corpuscular Hemoglobin Conc ent Red Cell 18.5 % Distribution Width Platelet Count 65 10^3/UL Mean Platelet 11.2 fl Volume Immature 0.300 % Granulocytes % Neutrophils % 37.1 % Lymphocytes % 54.3 % Monocytes % 7.7 % Eosinophils % 0.3 % Basophils % 0.3 % Nucleated Red 0.0 /100WBC Blood Cells % Immature 0.010 10^3/ul Granulocytes # Neutrophils # 1.3 10^3/ul Lymphocytes # 1.8 10^3/ul Monocytes # 0.3 10^3/ul Eosinophils # 0.0 10^3/ul Basophils # 0.0 10^3/ul Nucleated Red 0.0 10^3/ul Blood Cells # Triglycerides 144 mg/dl Level Cholesterol 241 mg/dl Level LDL 140 mg/dl Cholesterol, Calculated HDL Cholesterol 72 mg/dl Cholesterol/HDL 3.3 RATIO Ratio Assessment and Plan Assessment/Diagnosis Diagnosis Anxiety disorder NOS, insomnia NOS. Recommendation/Plan Medication Management Continue current dose of Ativan 1 mg nightly as needed anxiety and, start Ambien 5 mg at bedtime. Discharge Disposition: Other Legal Status: Voluntary (Patient does not meet criteria for 5150 hold) ROXY KINGSLEY NP Nov 17, 2018 10:34
--- NOTE | 2018-11-17 12:38 | CONS ---
Assessment/Plan Assessment/Plan Hospital Course (Demo Recall) IMPRESSION: 1. Chest pain. Assess for acute coronary syndrome, somewhat atypical symptomatology for cardiac etiology at this time.-neg trop x 3/NL EF by echo 2. Abnormal electrocardiogram with nonspecific asymptomatic. Assess for acute coronary syndrome. 3. Hypertension, labile, currently borderline hypotension. 4. Tachycardia, currently improved with EKG consistent with sinus tachycardia. 5. Pancytopenia, receiving transfusion. Recc: - OK for d/c from cardiac standpoint with outpatient f/u Consultation Date/Type/Reason Admit Date/Time Nov 15, 2018 at 17:41 Initial Consult Date 11/16/18 Type of Consult Cardiology Reason for Consultation chest pain Requesting Provider: INGRID OZUNA MD Date/Time of Note DATE: 11/17/18 TIME: 12:34 Exam/Review of Systems Vital Signs Vitals Vital Signs Date Temp Pulse Resp B/P (MAP) Pulse Ox O2 O2 Flow FiO2 Time Delivery Rate 11/17/18 75 12:25 11/17/18 98.6 18 131/80 98 Nasal 2.0 11:50 (97) Cannula 11/17/18 21 04:48 Intake and Output 11/16/18 11/16/18 11/17/18 1515:00 23:00 07:00 IntakeIntake Total 1000 ml 500 ml BalanceBalance 1000 ml 500 ml Exam Exam Review of Systems: CONSTITUTIONAL: No fevers, chills. PULMONARY: No sob CARDIOVASCULAR: No chest pain/palpitations GASTROINTESTINAL: No nausea/vomiting. GENITOURINARY: No hematuria/dysuria. MUSCULOSKELETAL: No myagias/arthalgias. PSYCHIATRIC: The patient denies depression. NEUROLOGIC: No weakness Constitutional: alert Psych: no complaints Head: normocephalic ENMT: mucosa pink and moist Neck: supple, jvd Respiratory: diminished breath sounds Cardiovascular: regular rate and rhythm Gastrointestinal: soft Musculoskeletal: muscle tone Extremities: edema (none) Neurological: other (No focal deficits) Labs Result Diagram: 11/17/18 0533 11/16/18 0515 Results 24hrs Laboratory Tests Test 11/16/18 19:40 11/17/18 05:28 11/17/18 05:33 Ammonia < 9 L Lab Scanned Report BLOOD TRANSFUSION White Blood Count 3.4 #L Red Blood Count 2.92 #L Hemoglobin 9.1 #L Hematocrit 26.2 #L Mean Corpuscular Volume 89.7 Mean Corpuscular Hemoglobin 31.2 Mean Corpuscular 34.7 Hemoglobin Concent Red Cell Distribution Width 18.5 H Platelet Count 65 L Mean Platelet Volume 11.2 H Immature Granulocytes % 0.300 Neutrophils % 37.1 L Lymphocytes % 54.3 H Monocytes % 7.7 Eosinophils % 0.3 Basophils % 0.3 Nucleated Red Blood Cells % 0.0 Immature Granulocytes # 0.010 Neutrophils # 1.3 L Lymphocytes # 1.8 Monocytes # 0.3 Eosinophils # 0.0 Basophils # 0.0 Nucleated Red Blood Cells # 0.0 Triglycerides Level 144 Cholesterol Level 241 H LDL Cholesterol, Calculated 140 HDL Cholesterol 72 Cholesterol/HDL Ratio 3.3 Medications Medications Current Medications Acetaminophen (Tylenol Tab) 650 mg Q6H PRN PO MILD PAIN(1-3)OR ELEVATED TEMP Last administered on 11/16/18 10:19; Admin Dose 650 MG; Start 11/15/18 at 23:30 Ondansetron HCl (Zofran Inj) 4 mg Q4H PRN IV NAUSEA AND/OR VOMITING; Start 11/15/18 at 23:30 Pantoprazole (Protonix Tab) 40 mg DAILY@06 PO Last administered on 11/17/18 05:45; Admin Dose 40 MG; Start 11/16/18 at 06:00 Lorazepam (Ativan) 1 mg HS PRN PO anxiety Last administered on 11/16/18at 01:58; Admin Dose 1 MG; Start 11/15/18 at 23:30 Melatonin (Melatonin) 5 mg HS PO Last administered on 11/16/18 21:05; Admin Dose 5 MG; Start 11/16/18 at 21:00 Docusate Sodium (Colace) 100 mg BID PRN PO CONSTIPATION Last administered on 11/17/18 05:45; Admin Dose 100 MG; Start 11/15/18 at 23:30 Polyethylene Glycol (Miralax) 17 gm DAILY PRN PO CONSTIPATION Last administered on 11/16/18 10:19; Admin Dose 17 GM; Start 11/15/18 at 23:30 Nitroglycerin (Nitroglycerin (Sl Tab) 0.4 Mg) 1 tab Q5M PRN SL ANGINA; Start 11/16/18 at 18:00 Magnesium Hydroxide (Milk Of Mag) 30 ml DAILY PO Last administered on 4/25/19at 10:30; Admin Dose 30 ML; Start 11/17/18 at 10:30 Zolpidem Tartrate (Ambien) 5 mg HS PRN PO INSOMNIA; Start 11/17/18 at 10:30 STEVEN BOGGS Nov 17, 2018 12:38
--- NOTE | 2018-11-17 14:00 | PDOCDIS ---
Discharge Instructions DIAGNOSIS Discharge Diagnosis atypical cp anxiety anemia thrombocytopenia CONDITION [id number] Patient Condition: [id number] Fair HOME CARE INSTRUCTIONS: [id number] Diet Instructions: [id number] Regular ACTIVITY: [id number] Activity Restrictions: [id number] Slowly Increase Activity Rest between Activity Avoid heavy lifting FOLLOW UP/APPOINTMENTS Follow-up Plan f/u PCP IN 1 week f/u Dr Liu in 1 week INGRID OZUNA MD Nov 17, 2018 14:00
[2018-11-17] MEDS ORDERED: UDMOM PO (14:02)
[2018-11-17] MEDS ORDERED: ZOLP5TAB PO (14:02)
--- NOTE | 2018-11-18 06:37 | DS ---
DATE OF ADMISSION: 11/15/2018 DATE OF DISCHARGE: 11/17/2018 HOSPITAL COURSE: This is a 53-year-old female with a past medical history of myelodysplastic syndrom e, hepatitis B, requiring blood transfusion, history of pancytopenia, multiple admissions in e past, presented to the Emergency Department with bilateral chest pain, some shortness of breath, al so having some anxiety due to her issues. She was also having some epistaxis and bleeding of her gum s while brushing her teeth. On admission, hemoglobin 7.2, white count 3.2, platelet count was 12. B UN and creatinine within normal limits. AST 73, ALT 157, alkaline phosphatase is 194. EKG did not s how any acute ST or T wave abnormalities. The patient was admitted to rule out chest pain, acute cor onary syndrome. Serial troponins were done that were negative. Patient also had an echocardiogram t hat showed mild left ventricular concentric hypertrophy, EF is 50% to 60%, abnormal diastolic dysfunc tion. The patient was given 1 unit of platelets and 2 units of blood. Hemoglobin came up to 9.1, pl atelet count was 65. The patient also seen by psychiatry consultation and was started on Ambien at b edtime and the patient is currently feeling much better. Per cardiology, might need follow up with a n outpatient followup and the patient is okay to discharge. Currently, the patient is stable and sta ble to be discharged home: 1. Atypical chest pain, likely secondary to anxiety, anxiety disorder. 2. Epigastric pain with normal LFTs. History of active hepatitis B. Abdominal ultrasound shows hep atocellular disease. 3. Pancytopenia with significant thrombocytopenia and anemia. 4. Anemia, status post 2 units of blood. 5. rule out thrombocytopenia, status post 1 unit of platelets. 6. History of myelodysplastic syndrome with aplastic anemia. 7. History of active hepatitis C. DISCHARGE MEDICATIONS: The patient was instructed to follow up with PCP 1 to 2 weeks. The patient w as instructed to follow up with cardiology in 1 to 2 weeks. A prescription was written for Ambien 5 mg p.o. at bedtime p.r.n. insomnia at night, only 15 tablets were given. Milk of magnesium p.r.n. c onstipation and continue with the medicines for MDS and hepatitis B which she is currently taking. Dictated By: INGRID CAREY/HENRIETTA Conf#: [id number] [facility]#: [id number]
== END 2018-11-17 16:00 | disposition home or self-care (01) | DRG 880 ==
LOC: E/R 14:25 → 6WM 17:41
PROVIDERS: ADMIT Internal Medicine; ATTEND Internal Medicine
PROC: 30233N1 Transfusion of Nonautologous Red Blood Cells into Peripheral Vein, Percutaneous Approach (ICD-10-PCS; 2018-11-15)
PROC: 6A550Z2 Pheresis of Platelets, Single (ICD-10-PCS; principal; 2018-11-16)
DX: F41.9 Anxiety disorder, unspecified (principal); D61.89 Other specified aplastic anemias and other bone marrow failure syndromes; B19.10 Unspecified viral hepatitis B without hepatic coma; D61.818 Other pancytopenia; D46.9 Myelodysplastic syndrome, unspecified; I10 Essential (primary) hypertension; R00.0 Tachycardia, unspecified; M19.90 Unspecified osteoarthritis, unspecified site; F32.9 Major depressive disorder, single episode, unspecified; R04.0 Epistaxis; R07.89 Other chest pain; R10.13 Epigastric pain; Z86.19 Personal history of other infectious and parasitic diseases
CPT/HCPCS: 36415; 36430; 71045; 76700; 80048; 80053; 80061; 82140; 82550; 82553; 83880; 84484; 85025; 85610; 85730; 86644; 86850; 86900; 86901; 86920; 86945; 87081; 93005; 93306; 96374; 96375; J1200; J2060; J2270; J2405; P9011; P9035

== ENCOUNTER 2019-02-03 10:28 | Emergency (ER) | payer OTHER ==
[~2019-02-03] VITALS: Ht 147.3 cm; Wt 61.0 kg
[~2019-02-03 10:28] MED LIST changes: +ALPR1TAB7 PO; -AMLO-147 PO; -DOCU-144 PO; -FER325 PO; -HYDR-4011 PO; -LORA0.5T PO; +UDMOM PO
[2019-02-03 10:44] VITALS: Ht 147.3 cm; Wt 61.0 kg
--- NOTE | 2019-02-03 12:04 | EN ---
Date/Time of Note Date/Time of Note DATE: 02/03/19 TIME: 12:04 ER Progress Note 53-year-old female with a history of anemia and thrombus cytopenia, presents to the emergency department, complaining of weakness, the patient has a PICC line for frequent transfusion, usually, twice per day, last transfusion 1 week ago. I will start a work-up in the emergency department. GAIL MUNIZ MD Feb 03, 2019 12:04
[2019-02-03] MEDS ORDERED: DIPHENHYDRAMINE 50 MG INJ IV ONE (15:20)
--- NOTE | 2019-02-03 19:01 | ERD ---
ER Documentation Chief Complaint Chief Complaint pt is bib self for possible anemia HPI This is a 53-year-old female with a history of myelodysplastic anemia and who is in need of a bone marrow transplant is here because she had some labs done yesterday by her doctor and was told to go to the ER to get a blood transfusion again. Patient was admitted here 3 times since April 2018 for pancytopenia. Patient says she has absolutely no symptoms but was told her hemoglobin was in the sixes and that her platelets were 12. She says she had a little bit of bleeding from her gums last night when she was brushing her teeth but denies any headache fever chest pain GI symptoms no melena, no vaginal bleeding no nosebleeds. ROS All systems reviewed and are negative except as per history of present illness. Medications Home Meds Active Scripts Magnesium Hydroxide* (Marinelli' MOM*) 30 Ml Susp, 30 ML PO DAILY for 7 Days Prov:INGRID OZUNA MD 11/17/18 Zolpidem Tartrate (Ambien Jean Pierre) 5 Mg Tablet, 5 MG PO HS PRN for INSOMNIA for 10 Days, TAB Prov:INGRID OZUNA MD 11/17/18 Reported Medications Alprazolam* (Alprazolam*) 1 Mg Tablet, 1 MG PO QHS PRN for ANXIETY, TAB 11/15/18 Allergies Allergies: Coded Allergies: No Known Allergy (Unverified , 11/15/18) PMhx/Soc History of Surgery: No Anesthesia Reaction: No Hx Neurological Disorder: No Hx Respiratory Disorders: Yes (PNA) Hx Cardiac Disorders: No Hx Psychiatric Problems: Yes (anxiety) Hx Miscellaneous Medical Probl: No (anemia blood transfusion j0hwbem ago ) Hx Alcohol Use: No Hx Substance Use: No Hx Tobacco Use: No Smoking Status: Never smoker FmHx Family History: No coronary disease Physical Exam Vitals Vital Signs Date Temp Pulse Resp B/P (MAP) Pulse Ox O2 O2 Flow FiO2 Time Delivery Rate 02/03/19 98.1 94 16 139/90 98 Room Air 18:29 (106) 02/03/19 98.0 95 18 132/85 99 Room Air 16:00 (101) 02/03/19 98.3 100 16 106/74 99 Room Air 14:02 (85) 02/03/19 98.3 64 16 108/68 99 10:44 (81) Physical Exam Const: Well-developed, well-nourished Head: Atraumatic, normocephalic Eyes: Normal Conjunctiva, PERRLA, EOMI, normal sclera, no nystagmus ENT: Normal External Ears, Nose and Mouth, moist mucus membranes. Neck: Full range of motion. No meningismus, no lymphadenopathy. Resp: Clear to auscultation bilaterally, no wheezing, rhonchi, rales Cardio: Regular rate and rhythm, no murmurs, S1 S2 present Abd: Soft, non tender x 4, non distended. Normal bowel sounds, no guarding or rebound, no pulsitile abdominal masses or bruits Skin: No petechiae or rashes, no ecchymosis , no maculopapular rash Back: No midline or flank tenderness Ext: No cyanosis, or edema, FROM x 4, normal inspection, neurovascularly intact x 4 Neur: Awake and alert, STR 5/5 x 4, sensation intact x 4, no focal findings, cerebellum intact Psych: Normal Mood and Affect Result Diagram: 02/03/19 1316 02/03/19 1316 Results 24 hrs Laboratory Tests Test 02/03/19 13:16 White Blood Count 2.5 10^3/ul Red Blood Count 2.00 10^6/ul Hemoglobin 6.9 g/dl Hematocrit 19.8 % Mean Corpuscular Volume 99.0 fl Mean Corpuscular Hemoglobin 34.5 pg Mean Corpuscular Hemoglobin Concent 34.8 g/dl Red Cell Distribution Width 22.1 % Platelet Count 12 10^3/UL Mean Platelet Volume 10.7 fl Immature Granulocytes % 0.400 % Neutrophils % % Segmented Neutrophils % (Manual) 35 % Band Neutrophils % (Manual) 1 % Lymphocytes % % Lymphocytes % (Manual) 54 % Reactive Lymphocytes % (Manual) 1 % Monocytes % % Monocytes % (Manual) 8 % Eosinophils % % Basophils % % Basophils % (Manual) 1 % Nucleated Red Blood Cells % 1 % Immature Granulocytes # 0.010 10^3/ul Neutrophils # 10^3/ul Neutrophils # (Manual) 0.9 10^3/ul Band Neutrophils # 0.0 10^3/ul Lymphocytes (Manual) 1.3 10^3/ul Lymphocytes # 10^3/ul Reactive Lymphocytes # 0.0 10^3/ul Monocytes # 10^3/ul Monocytes # (Manual) 0.2 10^3/ul Eosinophils # 10^3/ul Basophils # 10^3/ul Basophils # (Manual) 0.0 10^3/ul Nucleated Red Blood Cells # 10^3/ul Pathologist Review (Hematology) YES Platelet Estimate SIG DECREASED Polychromasia 3+ Hypochromasia 3+ Anisocytosis 2+ Microcytosis 2+ Prothrombin Time 12.6 Sec Prothrombin Time Ratio 1.0 INR International Normalized Ratio 0.93 Activated Partial Thromboplast Time 29.1 Sec Fibrinogen 308.0 mg/dl Sodium Level 142 mmol/L Potassium Level 3.6 mmol/L Chloride Level 107 mmol/L Carbon Dioxide Level 26 mmol/L Anion Gap 9 Blood Urea Nitrogen 12 mg/dl Creatinine 0.58 mg/dl Est Glomerular Filtrat Rate mL/min > 60 mL/min Glucose Level 121 mg/dl Calcium Level 9.7 mg/dl Total Bilirubin 0.6 mg/dl Direct Bilirubin 0.00 mg/dl Indirect Bilirubin 0.6 mg/dl Aspartate Amino Transf (AST/SGOT) 99 IU/L Alanine Aminotransferase (ALT/SGPT) 260 IU/L Alkaline Phosphatase 146 IU/L Total Protein 7.7 g/dl Albumin 4.3 g/dl Globulin 3.40 g/dl Albumin/Globulin Ratio 1.26 Current Medications Medications Dose Sig/Kathrin Start Time Status Last (Trade) Ordered Route PRN Stop Time Admin Dose Reason Admin 50 mg ONCE ONCE 02/03/19 DC 02/03/19 Diphenhydrami IV 15:20 15:26 ne HCl 02/03/19 15:21 (Benadryl) Procedures/[place] [id number] Radiology Main Line: [phone] DIAGNOSTIC IMAGING REPORT Patient: CHARLES FROST : 1965 Age: 53 Sex: F MR #: [id number] DOS: 02/03/19 1414 Ordering MD: ZAIDA CARPENTER DO Location: E/R Room/Bed: PROCEDURE: XR Chest. CLINICAL INDICATION: Shortness of breath. TECHNIQUE: Single frontal view. COMPARISON: None. FINDINGS: There is a left upper extremity PICC line which terminates overlying the distal SVC. The heart size is normal. There is a tortuous calcified thoracic aorta. There is no pleural effusion. There is no pneumothorax. There is scoliosis versus patient positioning. IMPRESSION: No focal consolidation. RPTAT: QQ Kelly Sosa Physician Date Time Electronically viewed and signed by Kelly Sosa Physician on 02/03/2019 14 :40 RD/ CC: ZAIDA CARPENTER DO [id number] Patient is going to receive 2 units of packed red blood cells and 2 packs of platelets. She is not sure if she wants to stay in the hospital is going to let me know shortly. She is clinically well-appearing and the blood and platelets should significantly help her labs status The patient does not want to stay in the hospital. She wants to go home. She is going to receive 2 units of blood and 2 units of platelets. She knows the symptoms to return and she will return if she gets any worse. Critical Care Time: 45 minutes Treatments/Evaluations: Close monitoring and treatment of unstable vital signs, cardiorespiratory, and neurologic status, while maintaining tight balance of fluid, respiratory, and cardiac interventions. This time includes discussing the case with the patient and the patient's family. This time does not include all procedures stated elsewhere in this record. This time also includes reviewing old records, labs and radiological studies. This time includes examining and re- examining the patient. Additionally, this time also includes arranging care with admitting and consulting physicians. Departure Diagnosis: Primary Impression: Pancytopenia Condition: Stable ZAIDA CARPENTER DO Feb 03, 2019 19:01
[2019-02-03 23:25] VITALS: BP 142/98; PULSE 82; RESP 16
== END 2019-02-04 00:15 | disposition home or self-care (01) ==
LOC: E/R 10:28
DX: D61.818 Other pancytopenia (principal); R06.02 Shortness of breath
CPT/HCPCS: 36430; 71045; 80053; 85025; 85384; 85610; 85730; 86644; 86850; 86900; 86901; 86920; 86945; J1200; P9011; P9035; 96374

== ENCOUNTER 2019-02-24 09:56 | Emergency (ER) | payer OTHER ==
[~2019-02-24] VITALS: Wt 65.0 kg
[2019-02-24 11:29] VITALS: BP 132/79; PULSE 46; RESP 16
--- NOTE | 2019-02-24 11:43 | ERD ---
ER Documentation Chief Complaint Chief Complaint has left arm picc line x 2 mos, reported pain at the site since yesterday HPI This is a 53-year-old female with a past medical history of thrombocytopenia who has been receiving platelet transfusions for the past year. Her radiology nurse oncologist is Dr. Woods. The patient indicates that 2 months ago at [facility] she had a left PICC line placed into her left antecubital region. She indicates that she has been experiencing pain around the site. The pain is a dull achy sensation whenever she flexes or extends her left arm. She said no fevers or shaking or chills. She states there is been no drainage or redness around the inoculation PICC line site. She phoned her radiology nurse oncologist who instructed her to come to the emergency department to be further evaluated. ROS All systems reviewed and are negative except as per history of present illness. Medications Home Meds Active Scripts Magnesium Hydroxide* (Marinelli' MOM*) 30 Ml Susp, 30 ML PO DAILY for 7 Days Prov:INGRID OZUNA MD 11/17/18 Zolpidem Tartrate (Ambien Jean Pierre) 5 Mg Tablet, 5 MG PO HS PRN for INSOMNIA for 10 Days, TAB Prov:INGRID OZUNA MD 11/17/18 Reported Medications Alprazolam* (Alprazolam*) 1 Mg Tablet, 1 MG PO QHS PRN for ANXIETY, TAB 11/15/18 Allergies Allergies: Coded Allergies: No Known Allergy (Unverified , 11/15/18) PMhx/Soc History of Surgery: No Anesthesia Reaction: No Hx Neurological Disorder: No Hx Respiratory Disorders: Yes (PNA) Hx Cardiac Disorders: No Hx Psychiatric Problems: Yes (anxiety) Hx Miscellaneous Medical Probl: No (ANEMIA WITH WEEKLY BLOOD TRANSFUSIONS, PICC LINE) Hx Alcohol Use: No Hx Substance Use: No Hx Tobacco Use: No Smoking Status: Never smoker Physical Exam Vitals Vital Signs Date Temp Pulse Resp B/P (MAP) Pulse Ox O2 O2 Flow FiO2 Time Delivery Rate 02/24/19 98.1 85 18 136/82 99 10:00 (100) Physical Exam Constitutional:Well-developed. Well-nourished. HEENT:Normocephalic. Atraumatic.Pupils were equal round reactive to light. No conjunctival pallor Respiratory: Not using accessory muscles of respiration.Lungs were clear to auscultation bilaterally. No rhonchi. No rales. No wheezing. Cardiovascular: Regular rate regular rhythm.No murmurs. No rubs were appreciated.S1, S2 normal. Distal pulses are palpable 2+ bilaterally. Skin: No petechia, no purpura. No lesions on the palms or the soles of the feet. No maculopapular rash. PICC line was present in the distal left humerus with no surrounding erythema warmth tenderness fluctuance or induration. Pain not out of proportion to physical exam. No spontaneous emphysema Procedures/MDM This is a very pleasant 53-year-old female who presented to the emergency department for evaluation of her PICC line. Both ports flushed easily without any signs of obstruction. The overlying skin did not suggest severe infection such as necrotizing fasciitis, cellulitis or an abscess. Therefore the patient stated she felt comfortable being discharged after we cleaned the site and placed a Tegaderm over the inoculation site. The patient was discharged home in fair condition. They were instructed to return to the emergency department at any time if there was any worsening of their condition. The patient stated they would follow up with their PCP in the next 24-48 hours to initiate a suitable medication regimen under the care of their PCP as well as to allow their PCP to monitor any drug reactions. The patient was discharged home with prescriptions after they gave informed consent to the new medication. They were also fully informed by myself on the adverse effects and adverse drug interactions in order to provide adequate safeguards to prevent possible adverse reactions to medications. Departure Diagnosis: Primary Impression: S/P PICC central line placement Condition: Fair Patient Instructions: Picc Line Care Referrals: GIULIANO ESPINOZA MD (PCP) YUMIKO RAHMAN MD Feb 24, 2019 11:43
== END 2019-02-24 11:33 | disposition home or self-care (01) ==
LOC: E/R 09:56
DX: Z45.2 Encounter for adjustment and management of vascular access device (principal)
CPT/HCPCS: 99282